=== PATIENT | male | born 1945 | race Caucasian/White ===

== ENCOUNTER → 2019-12-11 08:19 | Outpatient (BNVA) | payer MEDICARE, SELFPAY | PROVIDERS: Family Provider Nurse Practitioner; PCP Nurse Practitioner; Visit Provider Nurse Practitioner Family | DX: E03.9 Hypothyroidism, unspecified (principal); I10 Essential (primary) hypertension; E78.2 Mixed hyperlipidemia; F02.80 Dementia in other diseases classified elsewhere, unspecified severity, without behavioral disturbance, psychotic disturbance, mood disturbance, and anxiety; G30.9 Alzheimer's disease, unspecified | CPT/HCPCS: 80053; 80061; 81001; 84443; 85025 ==

== ENCOUNTER → 2020-04-20 09:09 | Outpatient (BNVA) | payer MEDICARE, SELFPAY | PROVIDERS: Family Provider Nurse Practitioner; PCP Nurse Practitioner Family; Visit Provider Nurse Practitioner Family | DX: I10 Essential (primary) hypertension (principal); E03.9 Hypothyroidism, unspecified; Z00.00 Encounter for general adult medical examination without abnormal findings | CPT/HCPCS: 80053; 84443; 85025 ==

== ENCOUNTER → 2021-04-18 09:59 | Outpatient (BNVA) | payer MEDICARE, SELFPAY | PROVIDERS: Family Provider Nurse Practitioner; PCP Nurse Practitioner Family; Visit Provider Nurse Practitioner Family | DX: E55.9 Vitamin D deficiency, unspecified (principal); I10 Essential (primary) hypertension; E78.2 Mixed hyperlipidemia; E03.9 Hypothyroidism, unspecified; Z79.899 Other long term (current) drug therapy; Z12.5 Encounter for screening for malignant neoplasm of prostate | CPT/HCPCS: 80053; 80061; 81003; 82306; 83036; 84443; 85007; 85025; G0103 ==

== ENCOUNTER 2021-08-25 10:33 | Inpatient (IN) | payer MEDICARE, SELFPAY ==
[2021-08-25] VITALS (15 sets, daily range): BP systolic 103–143; BP diastolic 68–119; PULSE 91–152; RESP 16–23; TEMP 37.1; O2SAT 89–96; BMI 25.0
--- NOTE | 2021-08-25 10:53 | XR_ITS ---
WS: [id number] PORTABLE CHEST HISTORY: dyspnea/cough COMPARISON: None available. Mild pulmonary hyperinflation. Markings throughout the periphery of the RIGHT lung. Increased interst itial thickening begins towards the apex and extends to the costophrenic angle. The LEFT lung is mansi r. No pleural effusion or pneumothorax. Cardiac size: Normal. Mediastinum/Aorta: Mild atherosclerosis aorta. No osseous abnormality seen. XR/XR chest 1V portable [id number] IMPRESSION: 1. Diffuse peripheral increased interstitial thickening and reticulation throu ghout the RIGHT lung. Probably due to pneumonitis. 2. Mild atherosclerosis aorta. 3. Chronic emphysema.
--- NOTE | 2021-08-25 11:01 | W.ED.ARRPALP ---
HPI - Arrhythmia/Palpitations General: Chief Complaint: ER Hold Stated Complaint: AFIB Acting up Time Seen by Provider: 08/25/21 10:49 History of Present Illness: 75-year-old male presents to the emergency room with complaint of rapid heart rate for the last 4 to 5 days. No chest pain he does have increasing shortness of breath with activity. He has a known history of atrial fibrillation he is not on any anticoagulant he is on metoprolol has been taking all of his medications recently MD complaint: rapid heart beat, heart racing , skipped beats , palpitations and irregular heart beat Onset (ago): day(s) Duration: constant Severity: moderate Arrhythmia history: atrial fibrillation Associated symptoms: Deny anxiety, cough, diaphoresis, muscle cramps, nausea, paresthesias, pre-syncope, sense of impending doom, short of breath, syncope or vomiting Review of Systems Const: Denies: diaphoresis ENMT: Denies: throat pain, ear or mastoid pain, nasal discharge or nasal congestion Card: Denies: syncope or pre-syncope Resp: Denies: dyspnea, productive cough or non-productive cough GI: Denies: nausea or vomiting : Denies: flank pain, dysuria, urinary frequency or urinary urgency Musc: Denies: muscle cramps Skin/Breast: Denies: rash or pruritus Psych: Denies: anxiety PFSH ED PFSH: Medical History Afib Alzheimer's dementia Arthritis Colon cancer screening Essential hypertension Hypothyroid Influenza vaccine needed Medication management Mixed hyperlipidemia Prostate cancer screening Tinea corporis Vitamin D deficiency Surgical History H/O basal cell carcinoma excision Social History Second hand smoke exposure: No Alcohol intake: never Desire information about alcohol rehabilitation?: No Counseling given: No Desire information about substance/drug rehabilitation?: No Counseling given: No Caregiver/support person: Yes Lives independently: Yes Household members: spouse Housing: House Marital status: Physical Exam Const: COMMON NORMALS: no acute distress GENERAL APPEARANCE: cooperative and comfortable ORIENTATION/CONSCIOUSNESS: Yes awake, Yes oriented to person, Yes oriented to place and Yes oriented to time Neck/C-Spine: COMMON NORMALS: no JVD Resp: COMMON NORMALS: normal respiratory effort, No retractions, No use of accessory muscles and clear to auscultation bilaterally AUSCULTATION: clear to auscultation bilaterally Cardio: COMMON NORMALS: no JVD RATE: tachycardic RHYTHM: abnormal rhythm irregularly irregular GI: COMMON NORMALS: Soft to palpation and No hepatosplenomegaly present AUSCULTATION: Yes normoactive bowel sounds PALPATION: Yes Soft to palpation, No Tenderness to palpation present (GI), No Guarding due to palpation present (GI) and Yes No hepatosplenomegaly present Extremity: COMMON NORMALS: normal to inspection, capillary refill normal, no clubbing, cyanosis or edema, no calf tenderness and no pedal edema Neuro: SENSORIUM/ORIENTATION: Yes oriented to person, Yes oriented to place and Yes oriented to time Skin: COMMON NORMALS: no rashes or lesions noted GENERAL SKIN EXAM: no rashes or lesions noted Course Vital Signs: Vital signs: Vital Signs Temperature 97.3 F L 08/30/21 03:22 Pulse Rate 88 08/30/21 06:00 Respiratory Rate 18 08/30/21 03:30 Blood Pressure 149/88 08/30/21 03:22 Pulse Oximetry 94 08/30/21 03:30 MDM - Arrhythmia/Palpitations Medical Decision Making Patient presents with COVID pneumonitis, acute kidney injury A. fib with rapid ventricular response and dementia. Patient was initiated on Cardizem drip for rate control. Patient has improved rate. Were not able to CT his chest at this point due to his acute kidney injury however he is not profoundly hypoxic at this point. I am suspicious that he will significantly worsen to the course of this given his age and his other comorbidities. Discussed with hospitalist orders written Medical Records I reviewed the patient's medical records. Lab Data I reviewed the patient's lab results. : 08/30/21 02:25 08/30/21 02:25 Radiology Impressions Chest/Abdomen/Pelvis CT 08/26/21 17:23 IMPRESSION: 1. Hazy bilateral pulmonary opacities which are consistent with COVID-19. 2. Evaluation of pulmonary arteries is somewhat limited secondary to respiratory motion. 3. No pulmonary embolism. IMPRESSION: 1. The examination is limited by patient motion. 2. Diverticulosis without diverticulitis. COMMENTS: Consistent with the [employer] [employer]'s Incidental Findings Committee white paper (J Am Kelli Radiol 2018): Any incidental renal lesion less than 1 cm or classified as too small to characterize, or any incidental cystic renal lesion characterized as simple-appearing, is likely benign. No follow-up imaging is recommended for these lesions per consensus recommendations based on imaging criteria. Head CT 08/26/21 17:23 IMPRESSION: 1. No acute infarct or hemorrhage. 2. No calvarial or skull base fracture. 3. Mild parenchymal atrophy and chronic small vessel disease. Chest X-Ray 08/28/21 09:28 IMPRESSION: 1. Diffuse airspace disease throughout the RIGHT lung. No interval change or improvement. Less opacification throughout the LEFT lung. 2. Pulmonary hypertension. Laboratory Results WBC 23.5 10^3/uL (4.0-10.0) H 08/25/21 11:33 RBC 4.44 10^6/uL (4.1-5.3) 08/25/21 11:33 Hgb 12.3 g/dL (11.7-16.6) 08/25/21 11:33 Hct 37.1 % (42.0-52.0) L 08/25/21 11:33 MCV 83.6 fl (80-94) 08/25/21 11:33 MCH 27.7 pg (28.0-34.0) L 08/25/21 11:33 MCHC 33.2 g/dL (30.0-36.0) 08/25/21 11:33 RDW 16.4 % (12.1-15.1) H 08/25/21 11:33 Plt Count 49 10^3/cmm (130-400) L 08/25/21 11:33 MPV Not Reportable 08/25/21 11:33 Lymph % (Auto) Not Reportable 08/25/21 11:33 [place] % (Auto) Not Reportable 08/25/21 11:33 Lymph # (Auto) Not Reportable 08/25/21 11:33 [place] # (Auto) Not Reportable 08/25/21 11:33 Total Counted 100 (0-100) 08/25/21 11:33 Atypical Lymphs % 2.0 % (0-5) 08/25/21 11:33 Absolute Neutrophils 18.6 10^3/cmm (1.4-6.5) H 08/25/21 11:33 Segmented Neutrophils 60 % 08/25/21 11:33 Abs Segm Neuts (Man) 14.1 10/cmm (1.6-7.1) H 08/25/21 11:33 Band Neutrophils 19.0 % 08/25/21 11: Abs Band Neuts (Man) 4.5 10^3/cmm (0.0-1.2) H 08/25/21 11:33 Absolute Lymphocytes 0.9 10^3/cmm (1.2-3.4) L 08/25/21 11:33 Lymphocytes (Manual) 2 % 08/25/21 11: Monocytes (Manual) 11.0 % 08/25/21 11: Absolute Monocytes 2.6 10^3/cmm (0.1-0.6) H 08/25/21 11: Eosinophils (Manual) 0 % 08/25/21 11: Absolute Eosinophils 0.0 10^3/cmm (0.0-0.7) 08/25/21 11:33 Basophils (Manual) 0.0 % 08/25/21 11: Absolute Basophils 0.0 10^3/cmm (0.0-0.2) 08/25/21 11:33 Metamyelocytes 3.0 % 08/25/21 11: Myelocytes 3.0 % 08/25/21 11:33 Platelet Estimate Decreased (Normal) 08/25/21 11:33 ESR 37 mm/hr (0-10) H 08/25/21 11:33 Sodium 133 mmol/L (136-145) L 08/25/21 11:33 Potassium 3.8 mmol/L (3.5-5.1) 08/25/21 11:33 Chloride 101 mmol/L (98-107) 08/25/21 11:33 Carbon Dioxide 20 mmol/L (22-29) L 08/25/21 11:33 Anion Gap 15.8 (5-19) 08/25/21 11:33 BUN 33 mg/dL (8-23) H 08/25/21 11:33 Creatinine 1.3 mg/dL (0.7-1.2) H 08/25/21 11:33 GFR Calculation Not Reportable 08/25/21 11:33 Glucose 137 mg/dL (65-115) H 08/25/21 11:33 Calculated Osmolality 285 mOsm/kg (285-295) 08/25/21 11:33 Calcium 9.3 mg/dL (8.5-10.5) 08/25/21 11:33 Iron 24 ug/dL (59-158) L 08/25/21 11:33 TIBC 132 mcg/dl 08/25/21 11:33 % Saturation 18.1 % (20-50) L 08/25/21 11:33 Unsat Iron Binding 108 ug/dL (112-347) L 08/25/21 11:33 Ferritin 992 ng/mL (30-400) H 08/25/21 11:33 Total Bilirubin 0.6 mg/dL (0.15-1.2) 08/25/21 11:33 AST 24 U/L (0-40) 08/25/21 11:33 ALT 13 U/L (0-41) 08/25/21 11:33 Alkaline Phosphatase 43 IU/L (40-130) 08/25/21 11:33 Lactate Dehydrogenase 318 U/L (135-225) H 08/25/21 11:33 Creatine Kinase 57 U/L (39-308) 08/25/21 11:33 Troponin T Baseline 21 ng/L (0-15) H 08/25/21 11:33 Troponin T 120 Minute 21.35 ng/L (0-15) H 08/25/21 13:45 Delta Troponin T 0.35 ABS# (0-10) 08/25/21 13:45 NT-Pro-B Natriuret Pep 2423 pg/mL (0-450) H 08/25/21 11:33 Total Protein 6.1 g/dL (6.6-8.7) L 08/25/21 11:33 Albumin 3.6 g/dL (3.5-5.2) 08/25/21 11:33 Globulin 2.5 g/dL (1.3-4.6) 08/25/21 11:33 Procalcitonin 0.19 ng/mL (0-0.5) 08/25/21 11:33 TSH 3.16 uIU/mL (0.27-4.20) 08/25/21 11:33 Urine Color Yellow (Yellow) 08/25/21 11:51 Urine Appearance Clear (CLEAR) 08/25/21 11:51 Urine pH 5 (5-7) 08/25/21 11:51 Ur Specific [place] 1.015 (1.005-1.030) 08/25/21 11:51 Urine Protein Trace (Negative) 08/25/21 11:51 Urine Glucose (UA) Norm (Normal) 08/25/21 11:51 Urine Ketones 1+ (Negative) H 08/25/21 11:51 Urine Blood 2+ (Negative) H 08/25/21 11:51 Urine Nitrate Negative (Negative) 08/25/21 11:51 Urine Bilirubin Neg (Negative) 08/25/21 11:51 Urine Urobilinogen Neg mg/dL (Negative) 08/25/21 11:51 Ur Leukocyte Esterase Negative (Negative) 08/25/21 11:51 Urine RBC Rare /hpf (0-2) 08/25/21 11:51 Urine WBC Rare /hpf (0-5) 08/25/21 11:51 Ur Squamous Epith Cells Rare /hpf (0-5) 08/25/21 11:51 Amorphous Sediment 1+ /hpf 08/25/21 11:51 Urine Bacteria Trace /hpf (NONE) 08/25/21 11:51 SARS-CoV-2 Ag (Rapid) Positive (Negative) H 08/25/21 14:27 Critical Care Time Critical Care Time: Critical Care Time: Yes Total Critical Care Time: 45 Attestation: The high probability of a clinically significant, sudden or life threatening deterioration of the patient's cardiovascular/respiratory system(s) required my full and direct attention, intervention and personal management. The critical care time is as shown. This time is in addition to time spent performing any reported procedures but includes the following: [x] Data and vital sign review and interpretation [x] Patient assessment, examination and intervention [x] Documentation [x] Medication orders and management Discharge Plan Discharge Patient Disposition: Admitted As Inpatient Admit Provider: Jhon Mcleod Clinical Impression: COVID-19, Atrial fibrillation, Pneumonia, Hypothyroid, Acute kidney injury (nontraumatic), Thrombocytopenia Condition: Stable Coding Level of Care Code ED Director Medical Writing for [facility]
[2021-08-25 11:48] LABS: Hematocrit 37.1 % (42.0-52.0); Hemoglobin 12.3 g/dL (11.7-16.6); Mean Corpuscular HGB Conc 33.2 g/dL (30.0-36.0); Mean Corpuscular Hemoglobin 27.7 pg (28.0-34.0); Mean Corpuscular Volume 83.6 fl (80-94); Platelet Count 49 10^3/cmm (130-400); Red Blood Count 4.44 10^6/uL (4.1-5.3); Red Cell Distribution Width 16.4 % (12.1-15.1); White Blood Count 23.5 10^3/uL (4.0-10.0)
[2021-08-25 12:06] LABS: Troponin(5th) Baseline 21 ng/L (0-15)
[2021-08-25 12:14] LABS: Alanine Aminotransferase 13 U/L (0-41); Albumin Level 3.6 g/dL (3.5-5.2); Alkaline Phosphatase 43 IU/L (40-130); Anion Gap 15.8 (5-19); Aspartate Amino Transferase 24 U/L (0-40); Blood Urea Nitrogen 33 mg/dL (8-23); Calcium 9.3 mg/dL (8.5-10.5); Carbon Dioxide 20 mmol/L (22-29); Chloride 101 mmol/L (98-107); Globulin 2.5 g/dL (1.3-4.6); Glucose 137 mg/dL (65-115); Osmolality Calculated 285 mOsm/kg (285-295); Potassium 3.8 mmol/L (3.5-5.1); Sodium 133 mmol/L (136-145); Thyroid Stimulating Hormone 3.16 uIU/mL (0.27-4.20); Total Bilirubin 0.6 mg/dL (0.15-1.2); Total Protein 6.1 g/dL (6.6-8.7)
[2021-08-25 12:16] LABS: Slide Review Slide Review Perform
[2021-08-25 12:18] LABS: Absolute Segmented Neutrophil 14.1 10/cmm (1.6-7.1); Band Neutrophils Absolute 4.5 10^3/cmm (0.0-1.2); Eosinophils 0 %; Lymphocytes 2 %; Monocytes Absolute 2.6 10^3/cmm (0.1-0.6); Segmented Neutrophils 60 %; Total Cells Counted 100 (0-100)
[2021-08-25 12:19] LABS: Absolute Neutrophil 18.6 10^3/cmm (1.4-6.5); Lymphocytes Absolute 0.9 10^3/cmm (1.2-3.4); Platelet Estimate Decreased (Normal)
[2021-08-25 12:51] LABS: Add Urine Microscopic? YES; Bilirubin Urine Neg (Negative); Blood Urine 2+ (Negative); Glucose Urine UA Norm (Normal); Ketones Urine 1+ (Negative); Leukocyte Esterase Urine Negative (Negative); Nitrate Urine Negative (Negative); Protein Urine Trace (Negative); Specific Gravity, Urine 1.015 (1.005-1.030); Urine Appearance Clear (CLEAR); Urine Color Yellow (Yellow); Urobilinogen Urine Neg (Negative); pH Urine 5 (5-7)
[2021-08-25 12:52] LABS: Add Urine Culture? No; Amorphous Sediment Urine 1+ /hpf; Bacteria Urine TRACE /hpf; RBC Urine RARE /hpf (0-2); Squamous Epithelial Cell Urine RARE /hpf (0-5); WBC Urine RARE /hpf (0-5)
[2021-08-25] MEDS: cefTRIAXone 1,000 MG in sodium chloride 0.9% (plus) 50 ML 100 MG IV (13:35)
[2021-08-25 14:49] LABS: Troponin 5 2HR 21.35 ng/L (0-15); Troponin 5 2HR Delta 0.35 ABS# (0-10)
[2021-08-25] MEDS: azithromycin 500 MG in sodium chloride 0.9% 250 ML 250 MG IV (15:49)
[2021-08-25 16:11] LABS: SARS Covid-2 Antigen Positive (Negative)
--- NOTE | 2021-08-25 16:47 | P.HP_ITS ---
Providers/Chief Complaint Primary Care Provider: MARCI Frias Chief Complaint: AFIB Acting up History of Present Illness Jalen Cannon is a 75 year old male with past medical, hypothyroidism, hypertension, Alzheimer's dementia who presents to the ER today with his because of difficulty in breathing which has been getting worse over last 5 days along with cough and expectoration. As per the his A. fib have been acting up. He has been having difficulty in breathing and his heart rate has been high on the home blood pressure monitor for last 5 days. Difficulty in breathing is getting exacerbated by minimal ambulation. Patient is vaccinated for COVID with moderna with last shot in fall has not taken the booster yet. Blood work in the ER showed a white count 23,000, hemoglobin of 12, platelet count of 49,000, sodium of 133, potassium of 3.8, creatinine of 1.3, AST/ALT are 24/13, TSH of 3.1, UA negative for nitrite, leuk esterase, COVID-19 rapid antigen positive Review of Systems General: Reports: ROS unobtainable due to medical condition Medications/Allergies Home Medications Medication Instructions Recorded Confirmed Last Taken Type Fish Oil 1 cap PO DAILY@08/25/21 08/25/21 Unknown History ascorbic acid (vitamin C) 500 mg 500 mg PO DAILY@08/25/21 08/25/21 Unknown History tablet (Vitamin C) calcium carbonate 600 mg (1,500 1 tab PO DAILY@08/25/21 08/25/21 Unknown History mg)-vitamin D3 200 unit tablet cholecalciferol (vitamin D3) 25 25 mcg PO DAILY@08/25/21 08/25/21 Unknown History mcg (1,000 unit) tablet (Vitamin D3) garlic 1 tab PO DAILY@08/25/21 08/25/21 Unknown History hydrochlorothiazide 12.5 mg capsule 12.5 mg PO QAM 08/25/21 08/25/21 08/25/21 08:30 History levothyroxine 50 mcg tablet 50 mcg PO QAM 08/25/21 08/25/21 08/25/21 History losartan 100 mg tablet 100 mg PO BEDTIME 08/25/21 08/25/21 08/24/21 History lovastatin 40 mg tablet 40 mg PO BEDTIME 08/25/21 08/25/21 08/24/21 History magnesium oxide 400 mg PO DAILY@12 08/25/21 08/25/21 Unknown History memantine 28 mg capsule 28 mg PO QAM 08/25/21 08/25/21 08/25/21 08:30 History sprinkle,extended release 24hr metoprolol succinate 25 mg 25 mg PO QAM 08/25/21 08/25/21 08/25/21 08:30 History tablet,extended release 24 hr multivitamin 1 tab PO DAILY 08/25/21 08/25/21 Unknown History Allergies Allergy/AdvReac Type Severity Reaction Status Date / Time donepezil [From Aricept] Allergy weight loss Verified 08/25/21 11:33 PFSH Acute PFSH: Medical History Afib Alzheimer's dementia Arthritis Colon cancer screening Essential hypertension Hypothyroid Influenza vaccine needed Medication management Mixed hyperlipidemia Prostate cancer screening Tinea corporis Vitamin D deficiency Surgical History H/O basal cell carcinoma excision Social History (Updated 08/25/21 @ 17:23 by Jhon Mcleod MD) Second hand smoke exposure: No Alcohol intake: never Desire information about alcohol rehabilitation?: No Counseling given: No Desire information about substance/drug rehabilitation?: No Counseling given: No Caregiver/support person: Yes Lives independently: Yes Household members: spouse Housing: House Marital status: Vitals/I&O/Wt Last Vital Signs Temp 98.7 F 08/25/21 10:51 Pulse 105 H 08/25/21 16:07 Resp 23 H 08/25/21 16:07 BP 115/71 08/25/21 16:07 Pulse Ox 92 08/25/21 16:07 08/25/21 08/25/21 08/25/21 06:59 14:59 22:59 Intake Total 70.067 / 70.067 23.542 / 93.609 Balance 70.067 / 70.067 23.542 / 93.609 Weight last 48 hrs Weight 83.915 kg Physical Exam Narrative: General: No acute distress, AO x 2, forgetful, knows he is in the hospital, knows his name and his 's name but not able to tell me why he is in the hospital HEENT: PERRLA, pupils bilaterally equal and reactive Chest: Normal vesicular breath sounds, no added sounds, equal good air entry bilaterally CVS: S1-S2 irregularly irregular, soft pansystolic murmur at apex, no tachycardia, no gallops, no rubs Abdomen: Soft, nontender, no organomegaly, bowel sounds present Neuro: No focal deficits, no facial deformity, Data : 08/25/21 11:33 08/25/21 11:33 Micro: Microbiology 08/25/21 13:45 Blood Culture - Preliminary Blood SPECIMEN COLLECTED 08/25/21 13:51 Blood Culture - Preliminary Blood SPECIMEN COLLECTED A&P Assessment and plan (1) Afib: Status: Acute (2) Hypoxia: Status: Acute (3) COVID-19: Status: Acute (4) Pneumonia: Status: Acute (5) Acute kidney injury (nontraumatic): Status: Acute (6) Essential hypertension: Status: Acute (7) Hypothyroid: Status: Acute Qualifiers: Hypothyroidism type: acquired Qualified Code(s): E03.9 - Hypothyroidism, unspecified (8) Alzheimer's dementia: Status: Acute (9) Thrombocytopenia: Status: Acute Plan Atrial fibrillation: Rapid ventricular response: Currently on Cardizem drip. Start on oral Cardizem 30 mg every 6 hourly. Stop Cardizem drip accordingly. Continue with home dose of metoprolol. Not on anticoagulation at home most likely secondary to recurrent falls. Currently thrombocytopenic so we will hold off on anticoagulation. Check echocardiogram. Hypoxia: Most likely is a combination of COVID-19 along with possible superimposed bacterial infection and CHF. COVID-19: Mild to moderate disease. Oxygen supplementation keeping saturation over 88%. Dexamethasone 6 mg daily. Remdesivir to finish a 5-day course. Vitamin C, zinc. DuoNeb every 6 hour, budesonide twice daily Pulmonary toilet with incentive spirometry flutter valve. We will monitor inflammatory markers including CRP, D-dimer every 48 hours. If getting elevated will dose Actemra but will have to rule out bacterial pneumonia before. Patient was made aware of the same and he has given verbal consent. Check D-dimer. Will do CT chest without contrast given mild NANCY will hold off on CTA for now. Patient has severe thrombocytopenia so we will hold off on anticoagulation for now. Check sputum culture, procalcitonin, urine Legionella, bacterial antigen, blood culture. For now start patient on treatment for community-acquired pneumonia with IV ceftriaxone and oral azithromycin. Check MRSA swab. If MRSA positive we will add vancomycin. Given hypoxia will try to keep patient as negative as possible. Patient clinically dehydrated for now. For now continue with gentle hydration with normal saline at 50 cc/h. Strict input output charting, daily weights. NANCY: Most likely secondary to dehydration along with home dose of ARB. Urinalysis, urine lites. Medical reconciliation done for nephrotoxic drugs. Hold off on losartan for now. Thrombocytopenia: Currently 49. Hemoglobin seems stable. Baseline platelet count around 150. Most likely secondary to viral infection. Continue to monitor. Continue to monitor for bleeding. Fall precaution. Hypertension: Goal blood pressure less than 140/90 mmHg. For now hold off on antihypertensives. Continue with metoprolol. We will uptitrate medication accordingly blood pressures. Advanced dementia CODE STATUS: Discussed in detail with patient's /DPOA. She states she is feeling making medical decisions for the patient. They have discussed in the past. DNR/DNI. Cardiac diet. SCDs for DVT prophylaxis. Hold off on medical prophylaxis given throm bocytopenia. 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
--- NOTE | 2021-08-25 16:53 | ECG_ITS ---
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
[2021-08-25 17:38] LABS: Erythrocyte Sedimentation Rate 37 mm/hr (0-10)
[2021-08-25 17:49] LABS: NT Pro B Type Natriuretic Pept 2423 pg/mL (0-450); Procalcitonin 0.19 ng/mL (0-0.5)
[2021-08-25 18:00] LABS: Creatine Phosphokinase 57 U/L (39-308); Ferritin 992 ng/mL (30-400); Iron 24 ug/dL (59-158); Percent Saturation 18.1 % (20-50); Total Iron Binding Capacity 132 mcg/dl; Unsaturated Iron Binding 108 ug/dL (112-347)
[2021-08-25 18:13] LABS: Fibrinogen 504 mg/dL (174-498)
[2021-08-25 18:17] LABS: D Dimer 1.71 ug/mIFEU (0-0.59)
[2021-08-25 18:20] LABS: Lactate Dehydrogenase 318 U/L (135-225)
[2021-08-25] MEDS: famotidine 20 mg/2 mL INJ IVP (18:20)
[2021-08-25] MEDS: ferrous gluconate 324 mg Tablet PO (18:20)
[2021-08-25] MEDS: dilTIAZem 30 mg Tablet PO (18:20)
[2021-08-25] MEDS: remdesivir 200 MG in sodium chloride 0.9% (100 ml) 100 ML 100 MG IV (18:21)
[2021-08-25] MEDS: dexamethasone 4 mg/mL INJ 6 MG IVP (18:21)
[2021-08-25 18:35] LABS: Troponin 5 6HR 18.45 ng/L (0-15)
[2021-08-25 18:36] LABS: Troponin 5 6HR Delta -2.55 ng/L (0-12)
[2021-08-25 20:08] LABS: Lactic Sepsis W/Reflex 1.6 mmol/L (0.5-2.2)
[2021-08-25] MEDS: atorvastatin 40 mg Tablet 20 MG PO (21:23)
[2021-08-25] MEDS: benzonatate 100 mg Capsule PO (21:24)
[2021-08-25] MEDS: budesonide 0.5 mg/2 mL Neb INHALATION (21:54)
[2021-08-25] MEDS: ipratropium-albuterol 3 mL Neb INHALATION (21:54)
[2021-08-25] MEDS: sodium chloride 0.9% 1,000 ML 50 ML IV (22:50)
[2021-08-25 23:02] LABS: Influenza A by IFA Negative (Negative); Influenza B by IFA Negative (Negative)
[2021-08-26] VITALS (15 sets, daily range): BP systolic 95–145; BP diastolic 46–80; PULSE 59–108; RESP 14–20; TEMP 36.7; O2SAT 91–99
[2021-08-26] MEDS: ipratropium-albuterol 3 mL Neb INHALATION ×3 (01:29→22:34)
[2021-08-26] MEDS: dilTIAZem 30 mg Tablet PO ×3 (02:08→10:31)
[2021-08-26] MEDS: famotidine 20 mg/2 mL INJ IVP ×2 (05:34→19:51)
[2021-08-26 06:31] LABS: Basophils # 0.1 10^3/uL (0.0-0.1); Basophils % 0.2 %; Hematocrit 40.2 % (42.0-52.0); Hemoglobin 12.9 g/dL (11.7-16.6); Lymphocytes % 5.5 %; Mean Corpuscular HGB Conc 32.1 g/dL (30.0-36.0); Mean Corpuscular Hemoglobin 27.6 pg (28.0-34.0); Mean Corpuscular Volume 85.9 fl (80-94); Monocytes # 2.4 10^3/uL (0.2-0.9); Monocytes % 6.6 %; Neutrophils # 28.15 10^3/uL (1.8-7.7); Neutrophils % 76.2 %; Nucleated Red Blood Cells % 0 %; Platelet Count 75 10^3/cmm (130-400); Red Blood Count 4.68 10^6/uL (4.1-5.3); Red Cell Distribution Width 16.7 % (12.1-15.1)
[2021-08-26] MEDS: metoprolol succinate ER (24 HR) 25 mg Tablet PO (06:39)
[2021-08-26] MEDS: levothyroxine 50 mcg Tablet PO (06:39)
[2021-08-26 06:40] LABS: D Dimer 1.96 ug/mIFEU (0-0.59)
[2021-08-26 06:51] LABS: C Reactive Protein 209.8 mg/L (0.0-4.9); Chol HDL Ratio 3.92 mg/dL (1.0-5.00); Cholesterol 98 mg/dL (0-200); HDL Cholesterol 25 mg/dL (60-100); LDL Cholesterol Calculated 60 mg/dL (50-129); Triglycerides 66 mg/dL (0-150); VLDL Cholestrol Calculation 13 mg/dL (0-30)
[2021-08-26 06:52] LABS: Alanine Aminotransferase 15 U/L (0-41); Albumin Level 3.7 g/dL (3.5-5.2); Alkaline Phosphatase 58 IU/L (40-130); Anion Gap 18.9 (5-19); Aspartate Amino Transferase 25 U/L (0-40); Blood Urea Nitrogen 25 mg/dL (8-23); Calcium 8.8 mg/dL (8.5-10.5); Carbon Dioxide 21 mmol/L (22-29); Chloride 100 mmol/L (98-107); Globulin 3.4 g/dL (1.3-4.6); Glucose 187 mg/dL (65-115); Osmolality Calculated 291 mOsm/kg (285-295); Potassium 3.9 mmol/L (3.5-5.1); Sodium 136 mmol/L (136-145); Total Bilirubin 0.5 mg/dL (0.15-1.2); Total Protein 7.1 g/dL (6.6-8.7)
[2021-08-26 07:21] LABS: Estmated Average Glucose 126
[2021-08-26 07:44] LABS: Slide Review Slide Review Perform; White Blood Count 36.9 10^3/uL (4.0-10.0)
[2021-08-26] MEDS: zinc gluconate 50 mg Tablet PO (09:22)
[2021-08-26] MEDS: ferrous gluconate 324 mg Tablet PO (09:22)
[2021-08-26] MEDS: benzonatate 100 mg Capsule PO ×2 (09:22→19:46)
[2021-08-26] MEDS: azithromycin 250 mg Tablet 500 MG PO (09:22)
[2021-08-26] MEDS: vancomycin 1,250 MG/250 ML PIGGYBACK 250 MG IV (10:31)
[2021-08-26] MEDS: ascorbic acid 500 mg Tablet PO (12:24)
[2021-08-26] MEDS: LORazepam 2 mg/mL INJ 1 mL IVP (12:45)
[2021-08-26] MEDS: cefTRIAXone 1,000 MG in sodium chloride 0.9% (plus) 50 ML 100 MG IV (12:47)
[2021-08-26] MEDS: sodium chloride 0.9% 1,000 ML 50 ML IV (15:00)
[2021-08-26] MEDS: dexmedeTOMIDine 0.9 % NaCL 400 MCG/100 ML PREMIX IV (16:29)
--- NOTE | 2021-08-26 16:41 | USCV_ITS ---
Davis Glasscock Age: 75 Gender: M : 1945 Exam Date: 08/26/2021 06:21 Ordering Phys: Jhon Mcleod MD Technologist: Exam Location: [facility] – [place], [place] Indication: COVID BP: 135 / 85 HR: 95 Rhythm: Sinus Technical Quality: Technically difficult study MEASUREMENTS (Male / Female) Normal Values 2D ECHO LV Diastolic Diameter PLAX 3.6 cm 4.2 - 5.9 / 3.9 - 5.3 cm LV Systolic Diameter PLAX 2.9 cm IVS Diastolic Thickness 1.1 cm 0.6 - 1.0 / 0.6 - 0.9 cm IVS Systolic Thickness 1.7 cm LVPW Diastolic Thickness 1.2 cm 0.6 - 1.0 / 0.6 - 0.9 cm LVPW Systolic Thickness 1.2 cm LV Ejection Fraction 2D Teich 26.1 % DOPPLER AV Peak Velocity 137.0 cm/s LVOT Peak Velocity 100.0 cm/s MV Area PHT 5.0 cm squared Mitral E to A Ratio 2.4 MV E' Velocity 62.0 cm/s TR Peak Velocity 145.0 cm/s TR Peak Gradient 8.4 mmHg Right Atrial Pressure 3.0 mmHg Pulmonary Artery Systolic Pressu 11.4 mmHg FINDINGS Left Ventricle Normal LV systolic size. LV systolic function is normal. No regional wall motion abnormalities are seen. Right Ventricle Grossly normal in size and function Right Atrium Well-visualized Left Atrium Not well-visualized Mitral Valve Grossly normal. Aortic Valve Not well-visualized Tricuspid Valve Not well-visualized. Insufficient TR jet to calculate RVSP Pulmonic Valve Not visualized Pericardium Grossly normal Aorta Not well visualized CONCLUSIONS Technically very limited quality echocardiogram because of poor ultrasonic windows. LV systolic function is normal Valvular structures are not well-visualized. No comparison studies are available Lincoln Riley MD (Electronically Signed) Final Date: 26 August 2021 16:42 S
--- NOTE | 2021-08-26 16:45 | XRR_ITS ---
PROCEDURE INFORMATION: Exam: XR Chest Exam date and time: 08/26/2021 4:45 PM Age: 75 years old Clinical indication: Other: Covid TECHNIQUE: Imaging protocol: XR of the chest. Views: 1 view. COMPARISON: CR XR chest 1V portable [id number] 08/25/2021 10:58 AM FINDINGS: Lungs: Increasing asymmetric airspace opacities are noted in the right perihilar and peripheral right lung compatible with progressing pneumonic infiltrates. Also identified are increasing smaller airspace opacities in the left lower lobe and left upper lobe. Pleural spaces: Unremarkable. No pleural effusion. No pneumothorax. Heart/Mediastinum: The heart is enlarged. Bones/joints: There are moderate degenerative changes in the spine. XR/XR chest 1V portable [id number] IMPRESSION: Marked interval progression of bilateral airspace opacity/pneumonic infiltrates right greater than left.
--- NOTE | 2021-08-26 17:23 | CTR_ITS ---
PROCEDURE INFORMATION: Exam: CT Head Without Contrast Exam date and time: 08/26/2021 5:23 PM Age: 75 years old Clinical indication: Altered mental status/memory loss; Confusion or disorientation; Patient HX: AMS / c ombative TECHNIQUE: Imaging protocol: Computed tomography of the head without contrast. Radiation optimization: All CT scans at this facility use at least one of these dose optimization techniques: automated exposure control; mA and/or kV adjustment per patient size (includes targeted exams where dose is matched to clinical indication); or iterative reconstruction. COMPARISON: No relevant prior studies available. RADIATION DOSE METRICS: Total DLP (mGy-cm): 805.91 FINDINGS: Brain: There is mild parenchymal atrophy and chronic small vessel disease. No acute infarct or hemorrhage. Cerebral ventricles: No ventriculomegaly. Paranasal sinuses: ethmoid sinus mucosal thickening. Mastoid air cells: Visualized mastoid air cells are clear. Bones/joints: No calvarial or skull base fracture. Soft tissues: Unremarkable. CT/CT head wo con* [id number] IMPRESSION: 1. No acute infarct or hemorrhage. 2. No calvarial or skull base fracture. 3. Mild parenchymal atrophy and chronic small vessel disease.
--- NOTE | 2021-08-26 17:23 | CTR_ITS ---
PROCEDURE INFORMATION: Exam: CTA Chest With Contrast Exam date and time: 08/26/2021 5:23 PM Age: 75 years old Clinical indication: Shortness of breath; Patient HX: Covid+ w worsening SOB and fever TECHNIQUE: Imaging protocol: Computed tomographic angiography of the chest with contrast. 3D rendering (Not supervised by radiologist): MIP and/or 3D reconstructed images were created by the technologist. Radiation optimization: All CT scans at this facility use at least one of these dose optimization techniques: automated exposure control; mA and/or kV adjustment per patient size (includes targeted exams where dose is matched to clinical indication); or iterative reconstruction. Contrast material: OMNI 350; Contrast volume: 95 ml; Contrast route: INTRAVENOUS (IV); COMPARISON: CR (CHEST, ) 08/26/2021 5:07 PM RADIATION DOSE METRICS: Total DLP (mGy-cm): 1996.6 FINDINGS: Pulmonary arteries: Evaluation of pulmonary arteries is somewhat limited secondary to respiratory motion. No pulmonary embolism. Aorta: Unremarkable. No aortic aneurysm. No aortic dissection. Other arteries: There is moderate atherosclerotic disease. Lungs: Hazy bilateral pulmonary opacities which are consistent with COVID-19. Pleural spaces: Unremarkable. No pneumothorax. No pleural effusion. Heart: Unremarkable. No cardiomegaly. No pericardial effusion. Lymph nodes: Unremarkable. No enlarged lymph nodes. Bones/joints: Unremarkable. No acute fracture. Soft tissues: Unremarkable. PROCEDURE INFORMATION: Exam: CT Abdomen And Pelvis With Contrast Exam date and time: 08/26/2021 5:23 PM Age: 75 years old Clinical indication: Shortness of breath; Patient HX: Covid+ w worsening SOB and fever TECHNIQUE: Imaging protocol: Computed tomography of the abdomen and pelvis with contrast. Radiation optimization: All CT scans at this facility use at least one of these dose optimization techniques: automated exposure control; mA and/or kV adjustment per patient size (includes targeted exams where dose is matched to clinical indication); or iterative reconstruction. Contrast material: OMNI 350; Contrast volume: 95 ml; Contrast route: INTRAVENOUS (IV); COMPARISON: CR (CHEST, ) 08/26/2021 5:07 PM RADIATION DOSE METRICS: Total DLP (mGy-cm): 1997.6 FINDINGS: Lungs: The lung bases are clear. No effusion Liver: 1.2 cm hepatic cyst. Gallbladder and bile ducts: No wall thickening, pericholecystic fluid or stones. Pancreas: Normal. No ductal dilation. Spleen: Normal. No splenomegaly. Adrenal glands: Normal. No mass. Kidneys and ureters: There are multiple bilateral renal cysts, largest measures 5 cm. Stomach and bowel: Diverticulosis without diverticulitis. Appendix: No evidence of appendicitis. Intraperitoneal space: Unremarkable. No free air. No significant fluid collection. Vasculature: There is moderate atherosclerotic disease. Lymph nodes: Unremarkable. No enlarged lymph nodes. Urinary bladder: Unremarkable as visualized. Reproductive: Unremarkable as visualized. Bones/joints: Unremarkable. No acute fracture. Soft tissues: Unremarkable. Other findings: The examination is limited by patient motion. CT/CT angio chest w abd pel w con IMPRESSION: 1. Hazy bilateral pulmonary opacities which are consistent with COVID-19. 2. Evaluation of pulmonary arteries is somewhat limited secondary to respiratory motion. 3. No pulmonary embolism. IMPRESSION: 1. The examination is limited by patient motion. 2. Diverticulosis without diverticulitis. COMMENTS: Consistent with the [employer]'s Incidental Findings Committee white paper (J Am Kelli Radiol 2018): Any incidental renal lesion less than 1 cm or classified as too small to characterize, or any incidental cystic renal lesion characterized as simple-appearing, is likely benign. No follow-up imaging is recommended for these lesions per consensus recommendations based on imaging criteria.
--- NOTE | 2021-08-26 17:25 | PM.PN ---
Subjective Subjective: Overnight patient remained in the ER. Apparently patient received 2 mg of Ativan during the day and after which he became more confused. When moved to CSU patient was combative and soft restraints. Patient is saturating 88 to 90% on room air, confused. Otherwise has remained hemodynamically stable and afebrile. Heart rate better controlled. No more A. fib with RVR. Vitals/I&O/Wt Last Vital Signs Temp 98.7 F 08/25/21 10:51 Pulse 86 08/26/21 14:31 Resp 15 08/26/21 14:31 BP 105/62 08/26/21 14:31 Pulse Ox 93 08/26/21 14:31 08/26/21 08/26/21 08/26/21 06:59 14:59 22:59 Intake Total 808.333 / 808.333 Balance 808.333 / 808.333 Weight last 48 hrs Weight 83.915 kg Physical Exam Narrative: General: No acute distress, confused, combative HEENT: PERRLA, pupils bilaterally equal and reactive Chest: Normal vesicular breath sounds, no added sounds, equal good air entry bilaterally CVS: S1-S2 irregularly irregular, soft pansystolic murmur at apex, no tachycardia, no gallops, no rubs Abdomen: Soft, nontender, no organomegaly, bowel sounds present Neuro: No focal deficits, no facial deformity, Data : 08/26/21 06:16 08/26/21 06:16 Micro: Microbiology 08/25/21 13:51 Blood Culture - Preliminary Blood NEGATIVE TO DATE 08/25/21 13:45 Blood Culture - Preliminary Blood NEGATIVE TO DATE 08/25/21 22:39 MRSA Culture - Final Nose 08/25/21 11:51 Bacterial Antigens - Final Urine Kidney 08/25/21 15:56 Gram Stain - Final Sputum - Expectorated Sputum 08/25/21 11:51 Legionella Urinary Antigen - Final Unknown Source A&P Assessment and plan (1) AMS (altered mental status): Most likely secondary to worsening of dementia along with sundowning because of Ativan given in the ER. Cannot rule out Covid encephalopathy. Precedex drip. Haldol 1 mg IV as needed every [address] head. ABG. Status: Acute (2) Afib: Status: Acute (3) Hypoxia: Status: Acute (4) COVID-19: Status: Acute (5) Pneumonia: Status: Acute (6) Acute kidney injury (nontraumatic): Status: Acute (7) Essential hypertension: Status: Acute (8) Hypothyroid: Status: Acute Qualifiers: Hypothyroidism type: acquired Qualified Code(s): E03.9 - Hypothyroidism, unspecified (9) Alzheimer's dementia: Status: Acute (10) Thrombocytopenia: Status: Acute Plan Atrial fibrillation: Normal rate. Off Cardizem drip. Changed to metoprolol tartrate 25 mg twice daily. Metoprolol 5 mg IV as needed for heart rate of more than 120 hold for systolic blood pressure of less than 100 mmHg. Not on anticoagulation at home most likely secondary to recurrent falls. Currently thrombocytopenic so we will hold off on anticoagulation. Echocardiogram results appreciated. Technically difficult study. Possibly normal EF. Hypoxia: Most likely is a combination of COVID-19 along with possible superimposed bacterial infection and CHF. COVID-19: Mild to moderate disease. Oxygen supplementation keeping saturation over 88%. Dexamethasone 6 mg daily. Remdesivir to finish a 5-day course. Vitamin C, zinc. DuoNeb every 6 hour, budesonide twice daily Pulmonary toilet with incentive spirometry flutter valve. We will monitor inflammatory markers including CRP, D-dimer every 48 hours. High suspicion of bacterial pneumonia. We will hold off on Actemra. D-dimer elevated. Check CTA. For now hold off on anticoagulation given thrombocytopenia. Sputum culture pending. MRSA negative., Urine Legionella, bacterial antigen negative. Given elevated white count along with mild oxygen requirement for now switch patient to vancomycin and Zosyn. Continue with azithromycin for 3-day course. Will de-escalate antibiotics as per culture results. Given hypoxia will try to keep patient as negative as possible. Stop IV fluids. Strict input output charting, daily weights. NANCY: Most likely secondary to dehydration along with home dose of ARB. Resolved. Medical reconciliation done for nephrotoxic drugs. Hold off on losartan for now. Thrombocytopenia: Improved to 75. Hemoglobin seems stable. Baseline platelet count around 150. Most likely secondary to viral infection. Continue to monitor. Continue to monitor for bleeding. Fall precaution. Hypertension: Goal blood pressure less than 140/90 mmHg. For now hold off on antihypertensives. Continue with metoprolol. We will uptitrate medication accordingly blood pressures. Advanced dementia CODE STATUS: Discussed in detail with patient's /DPOA. She states she is feeling making medical decisions for the patient. They have discussed in the past. DNR/DNI. Cardiac diet. SCDs for DVT prophylaxis. Hold off on medical prophylaxis given thrombocytopenia. Famotidine for PUD prophylaxis Attestations Medical Necessity Statement*: Requires further hospitalization for management of altered mental status, hypoxia secondary COVID-19 pneumonia and high suspicion of superimposed bacterial pneumonia Time Spent in Patient Care: Greater than 35 minutes Coding Level of Care Code Acute Postal Service Window Clerk for Chg Fwd History Comprehensive Exam Comprehensive Medical Decision Making High Complexity Diagnoses Afib I48.91 Hypoxia R09.02 COVID-19 U07.1 Pneumonia J18.9 Acute kidney injury (nontraumatic) N17.9 Essential hypertension I10 Hypothyroid E03.9 Hypothyroidism type: acquired Alzheimer's dementia G30.9; F02.80 Thrombocytopenia D69.6 AMS (altered mental status) R41.82
[2021-08-26 18:29] LABS: C Reactive Protein 119.6 mg/L (0.0-4.9); NT Pro B Type Natriuretic Pept 1494 pg/mL (0-450)
[2021-08-26 18:56] LABS: D Dimer 1.55 ug/mIFEU (0-0.59)
[2021-08-26] MEDS: remdesivir 100 MG in sodium chloride 0.9% (100 ml) 100 ML IV (19:23)
[2021-08-26] MEDS: atorvastatin 40 mg Tablet 20 MG PO (19:45)
[2021-08-26] MEDS: haloperidol inj 5 mg/mL INJ 1 mL 1 MG IVP (19:53)
--- NOTE | 2021-08-26 20:12 | PC.NURSE ---
Is currently on a Precedex drip at 0.6. Patient will not leave lines or ivs in place. Patient refusing and fighting staff to have ward catheter placed. Patient is confused and combative at times. Informed Dr Porras and received telephone order for soft restraints at this time.
[2021-08-26] MEDS: metoprolol tartrate 50 mg Tablet 25 MG PO (20:35)
[2021-08-26] MEDS: dexamethasone 4 mg/mL INJ 6 MG IVP (20:39)
[2021-08-26] MEDS: piperacillin-tazobactam 3.375 GM in sodium chloride 0.9% (plus) 50 ML IV (20:42)
[2021-08-26] MEDS: iohexol 350 mg/mL 100 mL Btl IV (22:03)
[2021-08-26] MEDS: budesonide 0.5 mg/2 mL Neb INHALATION (22:33)
[2021-08-27] VITALS (22 sets, daily range): BP systolic 85–136; BP diastolic 51–84; PULSE 61–119; RESP 14–22; TEMP 36.5–37.1; O2SAT 89–97
[2021-08-27] MEDS: ipratropium-albuterol 3 mL Neb INHALATION ×7 (00:57→23:57)
[2021-08-27] MEDS: vancomycin 1,250 MG/250 ML PIGGYBACK 250 MG IV ×2 (03:16→22:24)
[2021-08-27 04:18] LABS: ABG PCO2 34.5 mmHg (35-45); ABG PH Result 7.41 (7.35-7.45); Arterial Blood Gas Hematocrit 34.6 % (42-52); Base Excess ABG -2.2 mmol/L (-2.0-2.0); Blood Gas Allen Test Pos; Blood Gas Sample Site Radial, left; Blood Gas Sample Type Arterial; Carboxyhemoglobin 0.8 %THgb (0.4-20.1); HCO3 ABG 21.9 mmol/L (22-26); Ionized Calcium Level - ABG 1.2 mmol/L (1.1-1.4); Methemoglobin 0.5 % (0.4-1.5); Oxygen Device NC; Oxygen Saturation ABG 95.2; PO2 ABG 69.6 mmHg (80.0-100.0); Total Hemoglobin 11.3 g/dL (14-18)
[2021-08-27] MEDS: piperacillin-tazobactam 3.375 GM in sodium chloride 0.9% (plus) 50 ML IV ×3 (04:43→16:56)
[2021-08-27] MEDS: famotidine 20 mg/2 mL INJ IVP ×2 (04:44→16:22)
[2021-08-27] MEDS: levothyroxine 50 mcg Tablet PO (05:44)
[2021-08-27 07:49] LABS: Basophils # 0.1 10^3/uL (0.0-0.1); Basophils % 0.2 %; Hemoglobin 11.5 g/dL (11.7-16.6); Lymphocytes # 0.8 10^3/uL (0.8-4.8); Lymphocytes % 3.1 %; Mean Corpuscular HGB Conc 31.1 g/dL (30.0-36.0); Mean Corpuscular Hemoglobin 27.4 pg (28.0-34.0); Mean Corpuscular Volume 88.1 fl (80-94); Monocytes # 1.3 10^3/uL (0.2-0.9); Monocytes % 5.4 %; Neutrophils # 19.22 10^3/uL (1.8-7.7); Nucleated Red Blood Cells % 0 %; Platelet Count 79 10^3/cmm (130-400); Red Cell Distribution Width 16.6 % (12.1-15.1); White Blood Count 23.8 10^3/uL (4.0-10.0)
[2021-08-27 07:54] LABS: Neutrophils % 91.3 %
[2021-08-27] MEDS: budesonide 0.5 mg/2 mL Neb INHALATION ×2 (08:06→19:31)
[2021-08-27 08:18] LABS: Alanine Aminotransferase 14 U/L (0-41); Alkaline Phosphatase 44 IU/L (40-130); Anion Gap 15.1 (5-19); Aspartate Amino Transferase 18 U/L (0-40); Blood Urea Nitrogen 29 mg/dL (8-23); Calcium 7.9 mg/dL (8.5-10.5); Carbon Dioxide 20 mmol/L (22-29); Chloride 107 mmol/L (98-107); Globulin 2.8 g/dL (1.3-4.6); Glucose 199 mg/dL (65-115); Osmolality Calculated 297 mOsm/kg (285-295); Potassium 4.1 mmol/L (3.5-5.1); Sodium 138 mmol/L (136-145); Total Bilirubin 0.4 mg/dL (0.15-1.2); Total Protein 5.8 g/dL (6.6-8.7)
[2021-08-27 08:23] LABS: Procalcitonin 0.16 ng/mL (0-0.5)
--- NOTE | 2021-08-27 09:00 | PC.NURSE ---
Soft restraints off. Pt is confused x4. not agitated, able to take his oral meds and cooperate in ryan-cares. no skin breakdowns noted. old bruises from previous iv punctures noted. bed alarm reset. we will monitor. per house sup no available sitter to sit as 1:1.
[2021-08-27] MEDS: azithromycin 250 mg Tablet 500 MG PO (09:01)
[2021-08-27] MEDS: ferrous gluconate 324 mg Tablet PO ×2 (09:02→16:49)
[2021-08-27] MEDS: zinc gluconate 50 mg Tablet PO (09:02)
[2021-08-27] MEDS: benzonatate 100 mg Capsule PO ×3 (09:02→20:56)
[2021-08-27] MEDS: metoprolol tartrate 50 mg Tablet 25 MG PO (09:13)
--- NOTE | 2021-08-27 09:42 | PC.NURSE ---
soft restraints applied back on. pt is getting out of bed, trying to remove his IV. bed alarm reset. no available sitter per house sup. no skin breakdown noted on wrists.
[2021-08-27] MEDS: memantine 5 mg tablet 10 MG PO ×2 (11:34→16:49)
[2021-08-27] MEDS: citalopram 20 mg Tablet PO (11:35)
[2021-08-27] MEDS: dilTIAZem 30 mg Tablet PO ×3 (13:58→20:55)
[2021-08-27] MEDS: ascorbic acid 500 mg Tablet PO (13:59)
--- NOTE | 2021-08-27 14:24 | PC.NURSE ---
Pt is awake but disoriented x2,calm and cooperative to staff. soft restraints off. precedex off. able to talk to through phone. minimal assist in feeding. bed alarm reset. will keep monitoring.
[2021-08-27] MEDS: dexamethasone 4 mg/mL INJ 6 MG IVP (16:21)
[2021-08-27] MEDS: acetaminophen 325 mg Tablet 650 MG PO (16:48)
[2021-08-27] MEDS: metoprolol tartrate 1 mg/1 mL SDV 5 mL 5 MG IVP (16:50)
--- NOTE | 2021-08-27 17:33 | PM.PN ---
Subjective Subjective: Overnight patient remained calm on Precedex. Today morning examination patient is a lot more awake and calm. He still confused but that is his baseline. Precedex was turned down from 0.5 and weaned off. Soft restraints were removed. He remained on 2 to 3 L of oxygen supplementation to maintain saturation over 92%. During my conversation with the patient turned down to 1 L and maintained at 89%. Heart rate occasionally going elevated controlled by oral Cardizem. Vitals/I&O/Wt Last Vital Signs Temp 98.0 F 08/27/21 16:56 Pulse 108 H 08/27/21 16:09 Resp 16 08/27/21 16:09 BP 135/69 08/27/21 16:00 Pulse Ox 90 08/27/21 17:01 08/27/21 08/27/21 08/27/21 06:59 14:59 22:59 Intake Total 445.882 / 1685.962 591.467 / 591.467 998 / 1589.467 Output Total 800 / 800 Balance 445.882 / 1685.962 591.467 / 591.467 198 / 789.467 Physical Exam Narrative: General: No acute distress, confused, more calm today. HEENT: PERRLA, pupils bilaterally equal and reactive Chest: Normal vesicular breath sounds, no added sounds, equal good air entry bilaterally CVS: S1-S2 irregularly irregular, soft pansystolic murmur at apex, no tachycardia, no gallops, no rubs Abdomen: Soft, nontender, no organomegaly, bowel sounds present Neuro: No focal deficits, no facial deformity, Urinary Catheter Management: Coude: Cath Placed During This Visit: no Reason for Continuing Indwelling Catheter: Other Coude Latex Free: Cath Placed During This Visit: yes Urinary Catheter Date of Insertion: 08/27/21 Urinary Catheter Time of Insertion: 11:30 Data : 08/27/21 07:40 08/27/21 07:40 Micro: Microbiology 08/25/21 15:56 Gram Stain - Final Sputum - Expectorated Sputum Sputum Culture - Preliminary 08/25/21 13:51 Blood Culture - Preliminary Blood NEGATIVE TO DATE 08/25/21 13:45 Blood Culture - Preliminary Blood NEGATIVE TO DATE 08/25/21 22:39 MRSA Culture - Final Nose A&P Assessment and plan (1) AMS (altered mental status): Most likely secondary to worsening of advanced dementia. Got worsened with Ativan given in the ER. Cannot rule out Covid encephalopathy. Precedex drip weaned off. ABG and CT head results appreciated. Haldol 1 mg IV as needed every [address] head. ABG. Status: Acute (2) Afib: Status: Acute (3) Hypoxia: Status: Acute (4) COVID-19: Status: Acute (5) Pneumonia: Status: Acute (6) Acute kidney injury (nontraumatic): Status: Acute (7) Essential hypertension: Status: Acute (8) Hypothyroid: Status: Acute Qualifiers: Hypothyroidism type: acquired Qualified Code(s): E03.9 - Hypothyroidism, unspecified (9) Alzheimer's dementia: Status: Acute (10) Thrombocytopenia: Status: Acute Plan Atrial fibrillation: Normal rate. Off Cardizem drip. Increase metoprolol to 50 mg twice daily. Metoprolol 5 mg IV as needed for heart rate of more than 120 hold for systolic blood pressure of less than 100 mmHg. Not on anticoagulation at home most likely secondary to recurrent falls. Currently thrombocytopenic so we will hold off on anticoagulation. Echocardiogram results appreciated. Technically difficult study. Possibly normal EF. Hypoxia: Most likely is a combination of COVID-19 along with possible superimposed bacterial infection and CHF. COVID-19: Mild to moderate disease. Oxygen supplementation keeping saturation over 88%. Dexamethasone 6 mg daily. Remdesivir to finish a 5-day course. Vitamin C, zinc. DuoNeb every 6 hour, budesonide twice daily Pulmonary toilet with incentive spirometry flutter valve. We will monitor inflammatory markers including CRP, D-dimer every 48 hours. High suspicion of bacterial pneumonia. We will hold off on Actemra. D-dimer elevated. CTA negative for pulmonary embolism. For now hold off on anticoagulation given thrombocytopenia. Sputum culture pending. MRSA negative, Urine Legionella, bacterial antigen negative. Given elevated white count along with mild oxygen requirement for continue with vancomycin and Zosyn. Continue azithromycin for 5-day course for atypical coverage. Given hypoxia will try to keep patient as negative as possible. IV Lasix 40 mg once. Strict input output charting. Strict input output charting, daily weights. NANCY: Most likely secondary to dehydration along with home dose of ARB. Resolved. Medical reconciliation done for nephrotoxic drugs. Hold off on losartan for now. Thrombocytopenia: Currently stable. Hemoglobin seems stable. Baseline platelet count around 150. Most likely secondary to viral infection. Continue to monitor. Continue to monitor for bleeding. Fall precaution. Hypertension: Goal blood pressure less than 140/90 mmHg. For now hold off on antihypertensives. Continue with metoprolol. We will uptitrate medication accordingly blood pressures. Advanced dementia CODE STATUS: Discussed in detail with patient's /DPOA. She states she is feeling making medical decisions for the patient. They have discussed in the past. DNR/DNI. Cardiac diet. SCDs for DVT prophylaxis. Hold off on medical prophylaxis given thrombocytopenia. Famotidine for PUD prophylaxis Attestations Medical Necessity Statement*: Requires further hospitalization for management of hypoxia secondary COVID-19 pneumonia, atrial fibrillation with rapid ventricular response, metabolic encephalopathy most likely because of worsening advanced dementia Time Spent in Patient Care: Greater than 35 minutes Coding Level of Care Code Acute Director Of Acquisitions for [facility] Fwd Diagnoses AMS (altered mental status) R41.82 Afib I48.91 Hypoxia R09.02 COVID-19 U07.1 Pneumonia J18.9 Acute kidney injury (nontraumatic) N17.9 Essential hypertension I10 Hypothyroid E03.9 Hypothyroidism type: acquired Alzheimer's dementia G30.9; F02.80 Thrombocytopenia D69.6
--- NOTE | 2021-08-27 18:00 | PC.NURSE ---
Pt is starting to get restless and more confused. He stated he needs to get out of here, his son is visiting him. pt tried to get out of the bed. HR is in 120s to 130s afib. Metoprolol IV given PRN order. Notified Dr. Reyez. received telephone orders to give pt PRN IV haldol and start pt back on precedex drip at fixed rate of 0.2 mcg/kg/hr.
[2021-08-27] MEDS: FUROsemide 10 mg/mL SDV 4mL 40 MG IVP (18:42)
[2021-08-27] MEDS: remdesivir 100 MG in sodium chloride 0.9% (100 ml) 100 ML IV (18:42)
[2021-08-27] MEDS: haloperidol inj 5 mg/mL INJ 1 mL 1 MG IVP ×2 (19:25→22:26)
[2021-08-27] MEDS: metoprolol tartrate 50 mg Tablet PO (20:55)
[2021-08-27] MEDS: atorvastatin 40 mg Tablet 20 MG PO (20:56)
--- NOTE | 2021-08-27 21:01 | ECG_ITS ---
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 Measurements Intervals [place] Rate: 91 P: [place]: QRS: 59 QRSD: 96 T: 51 QT: 367 QTc: 452 Interpretive Statements ATRIAL FIBRILLATION SEPTAL MYOCARDIAL INFARCTION , PROBABLY OLD [40+ ms Q WAVE IN V1/V2] Compared to ECG 08/25/2021 10:42:30 Aberrant conduction of supraventricular beat(s) no longer present Ventricular premature complex(es) no longer present Myocardial infarct finding still present Electronically Signed On 08-29-2021 8:52:48 SCROLL SAW OPERATOR by Lincoln Riley M.D. [email or web address] medical [email or web address].[email or web address]/[id number]
--- NOTE | 2021-08-27 21:05 | PC.NURSE ---
Pt IV was removed on left hand. pt still running in afib w/rvr of HR 130s to 140s. evening oral meds given. valsalva manuever instructed however pt HR did not slow down. Pt stated he is having chest pain when asked. Dr. lainez notified. He will put the orders.
[2021-08-27 21:42] LABS: Troponin(5th) Baseline 18 ng/L (0-15)
--- NOTE | 2021-08-27 23:01 | ECG_ITS ---
[facility] Test Date: 2021-08-28 Pat Name: Jalen Cannon Department: Room: 111 Gender: Male Manual Lathe Operator: : 1945 Requested By: Khai Porras Order Number: [id number] Randi MD: Lincoln Riley M.D. Measurements Intervals [place] Rate: 73 P: [place]: QRS: 62 QRSD: 95 T: 51 QT: 414 QTc: 459 Interpretive Statements ATRIAL FIBRILLATION Compared to ECG 08/27/2021 22:16:59 Myocardial infarct finding no longer present Electronically Signed On 08-29-2021 9:02:37 CAR WHACKER by Lincoln Riley M.D. [id number]
--- NOTE | 2021-08-27 23:40 | PC.NURSE ---
Addendum entered by Keyonna Patel RN 08/27/21 23:52: No one on one sitter available. Original Note: Unable to wean patient off Precedex. Patient attempting to pull restraints off. Patient's heart rate 120s-140s at beginning of shift. Primary nurse notified Dr. Porras who ordered Amiodarone drip. Prior to starting Amio drip, patient's heart rate came down to 80s. Dr. Porras notified by primary nurse and he ordered to not start drip. Day shift RN gave PO Metoprolol at 2054.
[2021-08-27 23:52] LABS: Troponin 5 2HR 19.48 ng/L (0-15)
[2021-08-27 23:55] LABS: Troponin 5 2HR Delta 1.48 ABS# (0-10)
[2021-08-28] VITALS (20 sets, daily range): BP systolic 74–121; BP diastolic 45–92; PULSE 61–140; RESP 13–19; TEMP 36.7–36.9; O2SAT 88–98; BMI 25.5
[2021-08-28] MEDS: piperacillin-tazobactam 3.375 GM in sodium chloride 0.9% (plus) 50 ML IV ×3 (01:00→22:24)
--- NOTE | 2021-08-28 01:10 | PC.NURSE ---
Addendum entered by Keyonna Patel RN 08/28/21 01:31: No one on one sitter available. Original Note: Patients currently has soft wrist restraints on. Patient has been getting PRN Hadol and has Precedex running at 0.2. Patient continually pulls IVs out and sits up on side of bed without assistance. ICU nurse came over to verify correct placement of restraints. Correct restraints placement verified by [address] Porras ordered okay to go up on Precedex drip to 0.7. Ordered to give 2 mg IM Haldol x1. If not better in 15 minutes, ordered to give 1 mg IM Ativan.
[2021-08-28] MEDS: haloperidol inj 5 mg/mL INJ 1 mL 2 MG IM (01:21)
[2021-08-28] MEDS: LORazepam 2 mg/mL INJ 1 mL 1 MG IM (01:50)
--- NOTE | 2021-08-28 03:01 | ECG_ITS ---
[facility] Test Date: 2021-08-28 Pat Name: Jalen Cannon Department: Room: 111 Gender: Male Rehabilitation Clerk: : 1945 Requested By: Khai Porras Order Number: [id number] Randi MD: Lincoln Riley M.D. Measurements Intervals [place] Rate: 80 P: [place]: QRS: 73 QRSD: 91 T: 67 QT: 412 QTc: 475 Interpretive Statements ATRIAL FIBRILLATION Compared to ECG 08/28/2021 00:07:22 No significant changes Electronically Signed On 08-29-2021 9:02:13 BITUMINOUS DISTRIBUTOR OPERATOR by Lincoln Riley M.D. [id number]
[2021-08-28 03:28] LABS: Hematocrit 35.1 % (42.0-52.0); Hemoglobin 11.3 g/dL (11.7-16.6); Mean Corpuscular HGB Conc 32.2 g/dL (30.0-36.0); Mean Corpuscular Hemoglobin 27.2 pg (28.0-34.0); Mean Corpuscular Volume 84.6 fl (80-94); Platelet Count 124 10^3/cmm (130-400); Red Blood Count 4.15 10^6/uL (4.1-5.3); Red Cell Distribution Width 16.5 % (12.1-15.1)
[2021-08-28 03:35] LABS: Mean Platelet Volume 10.2 fL (7.4-10.4)
[2021-08-28 03:43] LABS: Troponin 5 6HR 16.31 ng/L (0-15)
[2021-08-28] MEDS: ipratropium-albuterol 3 mL Neb INHALATION ×2 (03:44→07:40)
[2021-08-28 03:58] LABS: NT Pro B Type Natriuretic Pept 3569 pg/mL (0-450)
[2021-08-28 04:07] LABS: Troponin 5 6HR Delta -1.69 ng/L (0-12)
[2021-08-28 04:10] LABS: Absolute Neutrophil 52.9 10^3/cmm (1.4-6.5); Band Neutrophils Absolute 13.9 10^3/cmm (0.0-1.2); Eosinophils 0 %; Lymphocytes 0 %; Lymphocytes Absolute 0.6 10^3/cmm (1.2-3.4); Monocytes Absolute 1.1 10^3/cmm (0.1-0.6); Platelet Estimate Decreased (Normal); Segmented Neutrophils 70 %; Slide Review Slide Review Perform; Total Cells Counted 100 (0-100); White Blood Count 55.7 10^3/uL (4.0-10.0)
[2021-08-28] MEDS: metoprolol tartrate 1 mg/1 mL SDV 5 mL 5 MG IVP ×2 (05:49→08:51)
--- NOTE | 2021-08-28 05:49 | PC.NURSE ---
Patient's heart rate up to 120s-130s. PRN Metoprolol given.
[2021-08-28] MEDS: budesonide 0.5 mg/2 mL Neb INHALATION ×2 (07:40→19:49)
[2021-08-28] MEDS: azithromycin 250 mg Tablet 500 MG PO (08:42)
[2021-08-28] MEDS: benzonatate 100 mg Capsule PO (08:49)
[2021-08-28] MEDS: dilTIAZem 30 mg Tablet PO ×3 (08:49→17:43)
[2021-08-28] MEDS: zinc gluconate 50 mg Tablet PO (08:49)
[2021-08-28] MEDS: metoprolol tartrate 50 mg Tablet PO (08:49)
[2021-08-28] MEDS: ferrous gluconate 324 mg Tablet PO ×2 (08:49→17:46)
[2021-08-28] MEDS: levothyroxine 50 mcg Tablet PO (08:50)
[2021-08-28] MEDS: citalopram 20 mg Tablet PO (08:51)
[2021-08-28] MEDS: memantine 5 mg tablet 10 MG PO (08:52)
--- NOTE | 2021-08-28 09:28 | XR_ITS ---
WS: [id number] PORTABLE CHEST HISTORY: sob COMPARISON: 08/26/2021 Extensive reticular infiltrates and opacifications throughout the RIGHT lung. No significant improvem ent since the prior examination. There is very minimal interstitial thickening throughout the LEFT fermin ng. No dense areas of consolidation. No pleural effusion or pneumothorax. Cardiac size: Normal. Mediastinum/Aorta: Mild atherosclerosis aorta. Pulmonary arteries are enlarged with rapid tapering. No osseous abnormality seen. XR/XR chest 1V portable [id number] IMPRESSION: 1. Diffuse airspace disease throughout the RIGHT lung. No interval change or i mprovement. Less opacification throughout the LEFT lung. 2. Pulmonary hypertension.
[2021-08-28 10:19] LABS: Alanine Aminotransferase 18 U/L (0-41); Albumin Level 3.1 g/dL (3.5-5.2); Alkaline Phosphatase 43 IU/L (40-130); Anion Gap 18.7 (5-19); Aspartate Amino Transferase 26 U/L (0-40); Blood Urea Nitrogen 35 mg/dL (8-23); Calcium 8.4 mg/dL (8.5-10.5); Carbon Dioxide 19 mmol/L (22-29); Chloride 104 mmol/L (98-107); Globulin 2.5 g/dL (1.3-4.6); Glucose 134 mg/dL (65-115); Osmolality Calculated 296 mOsm/kg (285-295); Potassium 3.7 mmol/L (3.5-5.1); Sodium 138 mmol/L (136-145); Total Bilirubin 0.4 mg/dL (0.15-1.2); Total Protein 5.6 g/dL (6.6-8.7)
[2021-08-28] MEDS: FUROsemide 10 mg/mL SDV 4mL 40 MG IVP (10:30)
[2021-08-28 11:01] LABS: LAB Peripheral Smear Sent for Review
[2021-08-28 11:15] LABS: Procalcitonin 0.12 ng/mL (0-0.5)
--- NOTE | 2021-08-28 11:31 | PC.SOCIAL ---
IMM update IMM updated with patient's . Verbalized an understanding. Initialled, dated, timed, and placed in chart.
[2021-08-28] MEDS: ascorbic acid 500 mg Tablet PO (14:24)
[2021-08-28] MEDS: haloperidol inj 5 mg/mL INJ 1 mL 1 MG IVP (14:31)
[2021-08-28] MEDS: levalbuterol 0.63 mg/3 mL Neb INHALATION ×2 (15:26→19:50)
[2021-08-28] MEDS: ipratropium 0.5 mg/2.5 mL Neb INHALATION ×2 (15:26→19:49)
[2021-08-28 15:52] LABS: Vancomycin Trough 14.1 ug/mL (10-15)
[2021-08-28] MEDS: vancomycin 1,250 MG/250 ML PIGGYBACK 250 MG IV (17:00)
--- NOTE | 2021-08-28 17:19 | PM.PN ---
Subjective Subjective: Overnight patient had agitation. Is on Precedex of 0.2. Received 2 mg of Haldol and 1 mg IV Ativan. After receiving Ativan patient again became combative. Today morning on examination patient lying comfortably in bed on Precedex drip. Patient's at bedside as we do not have any sitters. has agreed to stay till afternoon. Patient is a lot more, with at bedside. Heart rate has remained in the 200s. Saturation 88% on room air requiring 3 L to maintain over 90%. Patient remains confused. Otherwise afebrile. Vitals/I&O/Wt Last Vital Signs Temp 98.0 F 08/28/21 04:00 Pulse 99 08/28/21 15:38 Resp 18 08/28/21 15:36 BP 91/53 08/28/21 04:00 Pulse Ox 96 08/28/21 15:36 08/28/21 08/28/21 08/28/21 06:59 14:59 22:59 Intake Total 507.066 / 2456.533 405.35 / 405.35 12.657 / 418.007 Output Total 1000 / 3000 1110 / 1110 Balance -492.934 / -543.467 -704.65 / -704.65 12.657 / -691.993 Weight last 48 hrs Weight 85.502 kg Physical Exam Narrative: General: No acute distress, confused, more calm today. HEENT: PERRLA, pupils bilaterally equal and reactive Chest: Normal vesicular breath sounds, no added sounds, equal good air entry bilaterally CVS: S1-S2 irregularly irregular, soft pansystolic murmur at apex, no tachycardia, no gallops, no rubs Abdomen: Soft, nontender, no organomegaly, bowel sounds present Neuro: No focal deficits, no facial deformity, Urinary Catheter Management: Coude: Cath Placed During This Visit: no Reason for Continuing Indwelling Catheter: Other Coude Latex Free: Cath Placed During This Visit: yes Reason for Continuing Indwelling Catheter: Other Urinary Catheter Date of Insertion: 08/27/21 Urinary Catheter Time of Insertion: 11:30 Data : 08/28/21 02:57 08/28/21 02:57 Micro: Microbiology 08/25/21 15:56 Gram Stain - Final Sputum - Expectorated Sputum Sputum Culture - Final A&P Assessment and plan (1) AMS (altered mental status): Most likely secondary to worsening of advanced dementia along with sundowning. Got worsened with Ativan given in the ER. Cannot rule out Covid encephalopathy. Precedex drip. Zyprexa 10 mg twice daily. Namenda 10 mg a.m., 20 mg every afternoon. At home he takes Namenda Exar 28 mg daily. Haldol 1 mg IV as needed every 4 hours. Do not give Ativan as it causes agitation. Added to allergy list. Check CT head. ABG. Status: Acute (2) Afib: Status: Acute (3) Hypoxia: Status: Acute (4) COVID-19: Status: Acute (5) Pneumonia: Status: Acute (6) Acute kidney injury (nontraumatic): Status: Acute (7) Essential hypertension: Status: Acute (8) Hypothyroid: Status: Acute Qualifiers: Hypothyroidism type: acquired Qualified Code(s): E03.9 - Hypothyroidism, unspecified (9) Alzheimer's dementia: Status: Acute (10) Thrombocytopenia: Status: Acute Plan Atrial fibrillation: RVR when agitated. Switch to amiodarone drip. Cardizem 30 mg every 6 hourly. Continue with metoprolol to 50 mg twice daily. Metoprolol 5 mg IV as needed for heart rate of more than 120 hold for systolic blood pressure of less than 100 mmHg. Not on anticoagulation at home most likely secondary to recurrent falls. Currently thrombocytopenic so we will hold off on anticoagulation. Echocardiogram results appreciated. Technically difficult study. Possibly normal EF. Hypoxia: Most likely is a combination of COVID-19 along with possible superimposed bacterial infection and CHF. COVID-19: Mild to moderate disease. Oxygen supplementation keeping saturation over 88%. Dexamethasone 6 mg daily. Remdesivir to finish a 5-day course. Vitamin C, zinc. DuoNeb every 6 hour, budesonide twice daily Pulmonary toilet with incentive spirometry flutter valve. We will monitor inflammatory markers including CRP, D-dimer every 48 hours. High suspicion of bacterial pneumonia. We will hold off on Actemra. D-dimer elevated. CTA negative for pulmonary embolism. For now hold off on anticoagulation given thrombocytopenia. Sputum culture pending. MRSA negative, Urine Legionella, bacterial antigen negative. Given elevated white count along with mild oxygen requirement for continue with vancomycin and Zosyn. Continue azithromycin for 5-day course for atypical coverage. Given hypoxia will try to keep patient as negative as possible. IV Lasix 40 mg once. Strict input output charting. Strict input output charting, daily weights. NANCY: Most likely secondary to dehydration along with home dose of ARB. Resolved. Medical reconciliation done for nephrotoxic drugs. Hold off on losartan for now. Thrombocytopenia: Currently stable. Hemoglobin seems stable. Baseline platelet count around 150. Most likely secondary to viral infection. Continue to monitor. Continue to monitor for bleeding. Fall precaution. Hypertension: Goal blood pressure less than 140/90 mmHg. For now hold off on antihypertensives. Continue with metoprolol. We will uptitrate medication accordingly blood pressures. Advanced dementia CODE STATUS: Discussed in detail with patient's /DPOA. She states she is feeling making medical decisions for the patient. They have discussed in the past. DNR/DNI. Cardiac diet. SCDs for DVT prophylaxis. Hold off on medical prophylaxis given thrombocytopenia. Famotidine for PUD prophylaxis Plan for day: Switch to amiodarone drip. Continue with Cardizem 30 mg every 6 hourly, metoprolol twice daily. Oxygen supplementation keeping saturation over 88%. Sitter for confusion. Add Zyprexa. Wean off Precedex as possible. Continue with Namenda and Celexa. IV 40 mg Lasix. Follow-up culture results. For now continue with vancomycin and Zosyn. Patient's care discussed in detail with at bedside. We discussed unfortunately patient's care is complicated because of episodes of agitation and confusion which is most likely because of worsening of dementia and sundowning. verbalized understanding. We discussed it would be best if patient can be discharged but unfortunately because of worsening leukocytosis it would be best to continue the IV antibiotics and monitor him for longer. verbalizes understanding but wants to take him home as soon as possible. She states he is 75, with severe dementia and is a DNR/DNI. Attestations Medical Necessity Statement*: Requires further hospitalization for management of hypoxia secondary COVID-19 pneumonia, bacterial pneumonia, atrial fibrillation rapid ventricular response. 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
[2021-08-28] MEDS: memantine 5 mg tablet 20 MG PO (17:43)
[2021-08-28] MEDS: OLANZapine 10 mg ODT PO (17:43)
[2021-08-28] MEDS: acetaminophen 325 mg Tablet 650 MG PO (17:46)
[2021-08-28] MEDS: famotidine 20 mg/2 mL INJ IVP (19:24)
[2021-08-28] MEDS: dexamethasone 4 mg/mL INJ 6 MG IVP (19:29)
[2021-08-28] MEDS: remdesivir 100 MG in sodium chloride 0.9% (100 ml) 100 ML IV (19:32)
--- NOTE | 2021-08-28 21:01 | PC.NURSE ---
Shift Note Frequent safety and comfort rounds continue. Orders and/or nursing care completed as indicated. Patient monitored for response to intervention and treatment(s). Education provided includes soft restraints assessment and monitoring, HR control. Patient and/or transportation services representative verbalizes understanding. Will continue to monitor. 0700 am-Beginning of shift pt is restless. Afib w/rvr in 120s to 130s. He is trying to pull out his IV catheter, oxygen, ward out and getting out of bed w/o assistance. He is able to remove his soft restraints. No sitter available so called and she is agreeable. She said she will come in to sit. informed and okay w/ it. RT informed of pt oxygen. Precedex drip started back on. Okay with Dr. Reyez to restart. Start on Amio drip. 10am- stayed in room. Dr discuss to her the treatments and plan. The soft restraints are off from pt's wrists from 10 am until 2 pm when the stated she can't stay longer. 1400pm- pt is getting restless but cooperative. he wants to get out of the bed. assisted to bedside commode for BM. very unsteady and short of breath upon exertion. hr ranges from 120s to 130s on amio drip. unable to keep his oxygen on due to him pulling it off. desat to 84%. Dr stated keep oxygen above 88-90%. RT notified. oxygen applied per RT. Precedex drip titrated. This nurse stayed in room mostly all afternoon due to him trying to get out of bed, removing his restraints and IV with his meds. He said he wants to go home. reoriented pt. still wants to go home. informed and he ordered to give zyprexa oral. 1800 pm-Pt converted to SR w/freq PAC's. w/HR in upper 60s. precedex decreased per protocol. Dr reyez notified on pt's conversion to SR. 1927 pm-precedex drip paused and stopped. BP-110/74.
[2021-08-29] VITALS (108 sets, daily range): BP systolic 70–171; BP diastolic 43–109; PULSE 51–103; RESP 10–27; TEMP 35.6–36.6; O2SAT 65–100
[2021-08-29] MEDS: piperacillin-tazobactam 3.375 GM in sodium chloride 0.9% (plus) 50 ML IV ×3 (04:47→17:30)
[2021-08-29 04:54] LABS: Basophils % 0.1 %; Hematocrit 30.1 % (42.0-52.0); Hemoglobin 9.7 g/dL (11.7-16.6); Lymphocytes % 2.2 %; Mean Corpuscular HGB Conc 32.2 g/dL (30.0-36.0); Mean Corpuscular Hemoglobin 27.3 pg (28.0-34.0); Mean Corpuscular Volume 84.8 fl (80-94); Mean Platelet Volume 13.8 fL (7.4-10.4); Monocytes # 2.3 10^3/uL (0.2-0.9); Monocytes % 5.1 %; Nucleated Red Blood Cells % 0 %; Platelet Count 129 10^3/cmm (130-400); Red Blood Count 3.55 10^6/uL (4.1-5.3); Red Cell Distribution Width 16.5 % (12.1-15.1)
[2021-08-29 05:15] LABS: Alanine Aminotransferase 19 U/L (0-41); Albumin Level 2.9 g/dL (3.5-5.2); Alkaline Phosphatase 40 IU/L (40-130); Anion Gap 13.7 (5-19); Aspartate Amino Transferase 21 U/L (0-40); Blood Urea Nitrogen 52 mg/dL (8-23); C Reactive Protein 22.7 mg/L (0.0-4.9); Calcium 8.3 mg/dL (8.5-10.5); Carbon Dioxide 21 mmol/L (22-29); Chloride 104 mmol/L (98-107); Globulin 2.7 g/dL (1.3-4.6); Glucose 180 mg/dL (65-115); Osmolality Calculated 299 mOsm/kg (285-295); Potassium 3.7 mmol/L (3.5-5.1); Sodium 135 mmol/L (136-145); Total Bilirubin 0.4 mg/dL (0.15-1.2); Total Protein 5.6 g/dL (6.6-8.7)
[2021-08-29] MEDS: levothyroxine 50 mcg Tablet PO (05:15)
[2021-08-29] MEDS: memantine 5 mg tablet 10 MG PO (05:15)
[2021-08-29 05:29] LABS: White Blood Count 44.3 10^3/uL (4.0-10.0)
[2021-08-29 05:30] LABS: Slide Review Slide Review Perform
[2021-08-29] MEDS: ipratropium 0.5 mg/2.5 mL Neb INHALATION ×3 (08:44→19:20)
[2021-08-29] MEDS: budesonide 0.5 mg/2 mL Neb INHALATION ×2 (08:44→19:20)
[2021-08-29] MEDS: levalbuterol 0.63 mg/3 mL Neb INHALATION ×3 (08:44→19:20)
[2021-08-29] MEDS: dilTIAZem 30 mg Tablet PO (09:03)
[2021-08-29] MEDS: ferrous gluconate 324 mg Tablet PO ×2 (09:03→17:32)
[2021-08-29] MEDS: FUROsemide 10 mg/mL SDV 4mL 40 MG IVP (09:03)
[2021-08-29] MEDS: azithromycin 250 mg Tablet 500 MG PO (09:03)
[2021-08-29] MEDS: zinc gluconate 50 mg Tablet PO (09:03)
[2021-08-29] MEDS: amiodarone 200 mg Tablet PO ×2 (09:03→17:31)
[2021-08-29] MEDS: benzonatate 100 mg Capsule PO ×2 (09:03→22:46)
[2021-08-29] MEDS: citalopram 20 mg Tablet PO (09:03)
[2021-08-29] MEDS: vancomycin 1,250 MG/250 ML PIGGYBACK 250 MG IV (09:47)
[2021-08-29] MEDS: famotidine 20 mg/2 mL INJ IVP ×2 (09:47→22:45)
[2021-08-29] MEDS: OLANZapine 10 mg ODT PO ×2 (09:47→18:08)
[2021-08-29] MEDS: metoprolol tartrate 50 mg Tablet PO (09:47)
[2021-08-29] MEDS: ascorbic acid 500 mg Tablet PO (12:55)
[2021-08-29] MEDS: memantine 5 mg tablet 20 MG PO (17:32)
[2021-08-29] MEDS: remdesivir 100 MG in sodium chloride 0.9% (100 ml) 100 ML IV (17:32)
[2021-08-29] MEDS: dexamethasone 4 mg/mL INJ 3 MG IVP (18:19)
--- NOTE | 2021-08-29 19:23 | PM.PN ---
Subjective Subjective: Confused. Denies chest pain or pressure. Denies trouble breathing. Asking for his mother. When asked if he means his , states he has. Vitals/I&O/Wt Last Vital Signs Temp 97.2 F L 08/29/21 15:45 Pulse 55 L 08/29/21 16:08 Resp 13 08/29/21 16:08 BP 100/60 08/29/21 16:08 Pulse Ox 92 08/29/21 16:08 08/29/21 08/29/21 08/29/21 06:59 14:59 22:59 Intake Total 50 / 1579.039 470 / 470 Output Total 1090 / 1090 500 / 1590 Balance 50 / -1440.961 -620 / -620 -500 / -1120 Weight last 48 hrs Weight 85.502 kg Physical Exam Const: COMMON NORMALS: no acute distress ORIENTATION/CONSCIOUSNESS: Yes confused HENMT: COMMON NORMALS: oropharynx normal Neck/C-Spine: COMMON NORMALS: no JVD Resp: COMMON NORMALS: normal respiratory effort and clear to auscultation bilaterally AUSCULTATION: clear to auscultation bilaterally Cardio: COMMON NORMALS: no JVD, regular rhythm, S1 normal heart sound present, S2 normal heart sound present and No murmurs present (Cardio) RATE: bradycardic RHYTHM: regular rhythm HEART SOUNDS: S1 normal heart sound present and S2 normal heart sound present GI: COMMON NORMALS: Normal to inspection, nondistended, normoactive bowel sounds present, Soft to palpation and non-tender PALPATION: Yes Soft to palpation Extremity: COMMON NORMALS: no joint enlargement and no pedal edema Neuro: COMMON NORMALS: moves all extremities Skin: COMMON NORMALS: no rashes or lesions noted GENERAL SKIN EXAM: no rashes or lesions noted Urinary Catheter Management: Coude: Cath Placed During This Visit: no Reason for Continuing Indwelling Catheter: Acute Urinary Retention or Obstruction Coude Latex Free: Cath Placed During This Visit: yes Reason for Continuing Indwelling Catheter: Other Urinary Catheter Date of Insertion: 08/27/21 Urinary Catheter Time of Insertion: 11:30 Data : 08/29/21 04:28 08/29/21 04:28 A&P Assessment and plan (1) Bradycardia: Precedex stopped. Metoprolol held. Diltiazem held. Continues on PO amiodarone for now. Off amiodarone. Monitor on telemetry. Atropine ordered, but did not require it. Heart rates have been gradual improving. Status: Acute (2) Hypotension: With bradycardia. Mean arterial pressure as low as 57, transiently. Mostly staying in the 60s. Medications held as above. Blood pressure is improving. Monitor. Status: Acute (3) NANCY (acute kidney injury): Possibly due to soft blood pressures. Limited oral intake. has been feeding him today. Monitor blood pressures. Medications held as above due to bradycardia. Reassess renal function. Hold ARB. Status: Acute (4) AMS (altered mental status): Most likely secondary to worsening of advanced dementia along with sundowning. Precedex discontinued due to bradycardia. Reorient. Return home as soon as able to. No agitation today. Appears to responded well to starting olanzapine. NB, avoid Ativan as did worse with that per reports. Haldol 1 mg IV as needed every 4 hours. No acute infarct or hemorrhage on CT head. No ventriculomegaly. Status: Acute (5) Afib: Optimization of A. fib with RVR control. Medications held as above due to bradycardia. Continue amiodarone for now. In case blood pressure stabilized consider resuming lower dose metoprolol. Not on anticoagulation due to risk of bleeding. Status: Acute (6) Hypoxia: Severe COVID-19 with hypoxia, oxygenation improving, down to 5 L nasal cannula oxygen requirement. Status: Acute (7) COVID-19: Improving. Continue to wean down oxygen as tolerating. Decrease Decadron dose due to confusion. Consider discontinuation. Completed remdesivir. Status: Acute (8) Pneumonia: Continue with empiric antibiotic coverage for now with Zosyn, vancomycin. Severe leukocytosis, possible chemo reaction, showing improvement today down to 44,000 Status: Acute (9) Essential hypertension: Status: Acute (10) Hypothyroid: Status: Acute Qualifiers: Hypothyroidism type: acquired Qualified Code(s): E03.9 - Hypothyroidism, unspecified (11) Alzheimer's dementia: Status: Acute (12) Thrombocytopenia: Status: Acute Attestations Medical Necessity Statement*: Continue admission for optimization of control of A. fib with RVR, adjustment of medications due to bradycardia, hypotension, reassessment of NANCY, optimization of of medications given acute encephalopathy superimposed on dementia. Disposition planning. 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
[2021-08-29] MEDS: atorvastatin 40 mg Tablet 20 MG PO (22:45)
[2021-08-30] VITALS (24 sets, daily range): BP systolic 111–176; BP diastolic 62–94; PULSE 58–108; RESP 11–22; TEMP 35.7–36.6; O2SAT 82–99
[2021-08-30] MEDS: piperacillin-tazobactam 3.375 GM in sodium chloride 0.9% (plus) 50 ML IV ×3 (02:00→16:31)
[2021-08-30 02:36] LABS: Basophils % 0.1 %; Hemoglobin 10.5 g/dL (11.7-16.6); Lymphocytes # 1.3 10^3/uL (0.8-4.8); Lymphocytes % 2.3 %; Mean Corpuscular HGB Conc 32.8 g/dL (30.0-36.0); Mean Corpuscular Hemoglobin 27.5 pg (28.0-34.0); Mean Corpuscular Volume 83.8 fl (80-94); Mean Platelet Volume 13.3 fL (7.4-10.4); Monocytes # 3.9 10^3/uL (0.2-0.9); Neutrophils # 38.16 10^3/uL (1.8-7.7); Neutrophils % 68.8 %; Nucleated Red Blood Cells % 0.1 %; Platelet Count 159 10^3/cmm (130-400); Red Blood Count 3.82 10^6/uL (4.1-5.3); Red Cell Distribution Width 16.7 % (12.1-15.1)
[2021-08-30 02:53] LABS: Alanine Aminotransferase 19 U/L (0-41); Albumin Level 3.3 g/dL (3.5-5.2); Alkaline Phosphatase 49 IU/L (40-130); Anion Gap 15.7 (5-19); Aspartate Amino Transferase 18 U/L (0-40); Blood Urea Nitrogen 50 mg/dL (8-23); Calcium 8.1 mg/dL (8.5-10.5); Carbon Dioxide 23 mmol/L (22-29); Chloride 107 mmol/L (98-107); Globulin 2.4 g/dL (1.3-4.6); Glucose 172 mg/dL (65-115); Magnesium 2.2 mg/dL (1.7-2.3); Osmolality Calculated 311 mOsm/kg (285-295); Potassium 3.7 mmol/L (3.5-5.1); Sodium 142 mmol/L (136-145); Total Bilirubin 0.5 mg/dL (0.15-1.2); Total Protein 5.7 g/dL (6.6-8.7)
[2021-08-30 03:05] LABS: Slide Review Slide Review Perform
[2021-08-30 03:07] LABS: White Blood Count 55.5 10^3/uL (4.0-10.0)
[2021-08-30] MEDS: vancomycin 1,250 MG/250 ML PIGGYBACK 250 MG IV (05:11)
[2021-08-30] MEDS: levothyroxine 50 mcg Tablet PO (06:46)
[2021-08-30] MEDS: memantine 5 mg tablet 10 MG PO (06:47)
--- NOTE | 2021-08-30 07:33 | PC.NURSE ---
Patient presedex gtt off at beginning of my shift. Patient calm most of night. Still has soft wrists restraints. Confused. Will continue to monitor.
[2021-08-30] MEDS: albumin 12.5 GM/250 ML VIAL IV (08:56)
[2021-08-30] MEDS: famotidine 20 mg/2 mL INJ IVP (09:07)
[2021-08-30] MEDS: OLANZapine 10 mg ODT PO ×2 (09:07→18:07)
[2021-08-30] MEDS: ferrous gluconate 324 mg Tablet PO ×2 (09:08→18:08)
[2021-08-30] MEDS: amiodarone 200 mg Tablet PO ×2 (09:08→18:08)
[2021-08-30] MEDS: azithromycin 250 mg Tablet 500 MG PO (09:08)
[2021-08-30] MEDS: zinc gluconate 50 mg Tablet PO (09:08)
[2021-08-30] MEDS: citalopram 20 mg Tablet PO (09:08)
[2021-08-30] MEDS: benzonatate 100 mg Capsule PO ×2 (09:08→09:09)
[2021-08-30] MEDS: metoprolol tartrate 50 mg Tablet PO (09:08)
[2021-08-30] MEDS: levalbuterol 0.63 mg/3 mL Neb INHALATION ×3 (09:11→21:23)
[2021-08-30] MEDS: ipratropium 0.5 mg/2.5 mL Neb INHALATION ×3 (09:11→21:23)
[2021-08-30] MEDS: budesonide 0.5 mg/2 mL Neb INHALATION ×2 (09:11→21:23)
--- NOTE | 2021-08-30 10:41 | PC.SOCIAL ---
IMM update IMM updated with patient's . Verbalized an understanding. Initialled, dated, timed, and placed in chart.
[2021-08-30] MEDS: ascorbic acid 500 mg Tablet PO (12:31)
[2021-08-30] MEDS: memantine 5 mg tablet 20 MG PO (18:08)
--- NOTE | 2021-08-30 20:08 | P.PN_ITS ---
Subjective Subjective: Denies pain or discomfort. Denies chest pain or pressure. Not lightheaded. Blood pressure is better today. In the afternoon noted episode of diarrhea. Vitals/I&O/Wt Last Vital Signs Temp 97.9 F 08/30/21 19:58 Pulse 63 08/30/21 19:58 Resp 15 08/30/21 19:58 BP 134/81 08/30/21 19:58 Pulse Ox 93 08/30/21 19:58 08/30/21 08/30/21 08/30/21 06:59 14:59 22:59 Intake Total 300 / 940 660 / 660 45 / 705 Output Total 600 / 3340 250 / 250 475 / 725 Balance -300 / -2400 410 / 410 -430 / -20 Weight last 48 hrs Weight 85.275 kg Physical Exam Const: COMMON NORMALS: no acute distress ORIENTATION/CONSCIOUSNESS: Yes confused HENMT: COMMON NORMALS: oropharynx normal Neck/C-Spine: COMMON NORMALS: no JVD Resp: COMMON NORMALS: normal respiratory effort and clear to auscultation bilaterally AUSCULTATION: clear to auscultation bilaterally Cardio: COMMON NORMALS: no JVD, regular rate, regular rhythm, S1 normal heart sound present, S2 normal heart sound present and No murmurs present (Cardio) RATE: regular rate RHYTHM: regular rhythm HEART SOUNDS: S1 normal heart sound present and S2 normal heart sound present GI: COMMON NORMALS: Normal to inspection, nondistended, normoactive bowel sounds present, Soft to palpation and non-tender PALPATION: Yes Soft to palpation Extremity: COMMON NORMALS: no joint enlargement and no pedal edema Neuro: COMMON NORMALS: moves all extremities Skin: COMMON NORMALS: no rashes or lesions noted GENERAL SKIN EXAM: no rashes or lesions noted Urinary Catheter Management: Coude: Cath Placed During This Visit: no Reason for Continuing Indwelling Catheter: Acute Urinary Retention or Obstruction Coude Latex Free: Cath Placed During This Visit: yes Reason for Continuing Indwelling Catheter: Acute Urinary Retention or Obstruction Urinary Catheter Date of Insertion: 08/27/21 Urinary Catheter Time of Insertion: 11:30 Data : 08/30/21 02:25 08/30/21 02:25 Micro: Microbiology 08/25/21 13:51 Blood Culture - Final Blood NO GROWTH AFTER 5 DAYS 08/25/21 13:45 Blood Culture - Final Blood NO GROWTH AFTER 5 DAYS A&P Assessment and plan (1) NANCY (acute kidney injury): Hypotension now resolved. Blood pressure appears to be stabilizing. Given albumin infusion. Stop vancomycin. Reassess renal function. Hold ARB. Discussed with his . Status: Acute (2) Leukocytosis: Worsened leukocytosis again today, 55.5. Noted episode of diarrhea, stool not collected for C. difficile Discussed with nursing staff to collect with next BM. Peripheral smear. Continue Zosyn for now. MRSA PCR negative, stop vancomycin. All cultures so far negative. Stop Decadron. Status: Acute (3) Bradycardia: Bradycardia had resolved, this morning heart rates in the 70s-80s. Restarted on metoprolol. Continue to hold diltiazem. Blood pressure is better. Off Precedex. Continues on PO amiodarone. Off amiodarone. Monitor on telemetry. Atropine ordered, but did not require it. Heart rates have been gradual improving. Status: Acute (4) Hypotension: Resolved, as above. Status: Acute (5) AMS (altered mental status): Most likely secondary to worsening of advanced dementia along with sundowning. Precedex discontinued due to bradycardia. Reorient. Return home as soon as able to. No agitation today. Appears to responded well to starting olanzapine. NB, avoid Ativan as did worse with that per reports. Haldol 1 mg IV as needed every 4 hours. No acute infarct or hemorrhage on CT head. No ventriculomegaly. Status: Acute (6) Afib: Optimization of A. fib with RVR control. Medications held as above due to bradycardia. Continue amiodarone for now. In case blood pressure stabilized consider resuming lower dose metoprolol. Not on anticoagulation due to risk of bleeding. Status: Acute (7) Hypoxia: Severe COVID-19 with hypoxia, oxygenation improving, down to 5 L nasal cannula oxygen requirement. Status: Acute (8) COVID-19: Gradually improving oxygenation. Continues to require nasal cannula support. Improving. Continue to wean down oxygen as tolerating. Stop Decadron. Completed remdesivir. Status: Acute (9) Pneumonia: Continue with empiric antibiotic coverage for now with Zosyn. Stop vancomycin. Stop Decadron. 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
[2021-08-30 20:58] LABS: LAB Peripheral Smear Sent for Review
[2021-08-31] VITALS (28 sets, daily range): BP systolic 114–175; BP diastolic 65–115; PULSE 77–127; RESP 12–23; TEMP 36.3–36.6; O2SAT 75–99
[2021-08-31] MEDS: metoprolol tartrate 50 mg Tablet PO ×3 (00:15→19:38)
[2021-08-31] MEDS: benzonatate 100 mg Capsule PO ×3 (00:15→15:51)
[2021-08-31] MEDS: atorvastatin 40 mg Tablet 20 MG PO (00:15)
[2021-08-31] MEDS: famotidine 20 mg/2 mL INJ IVP (00:16)
[2021-08-31] MEDS: piperacillin-tazobactam 3.375 GM in sodium chloride 0.9% (plus) 50 ML IV ×2 (01:03→10:57)
[2021-08-31 04:09] LABS: Hematocrit 31.4 % (42.0-52.0); Hemoglobin 9.9 g/dL (11.7-16.6); Mean Corpuscular HGB Conc 31.5 g/dL (30.0-36.0); Mean Corpuscular Hemoglobin 27.4 pg (28.0-34.0); Mean Platelet Volume 12.3 fL (7.4-10.4); Platelet Count 181 10^3/cmm (130-400); Red Blood Count 3.61 10^6/uL (4.1-5.3); Red Cell Distribution Width 16.9 % (12.1-15.1)
[2021-08-31 04:36] LABS: Alanine Aminotransferase 29 U/L (0-41); Albumin Level 3.2 g/dL (3.5-5.2); Alkaline Phosphatase 47 IU/L (40-130); Anion Gap 13.4 (5-19); Aspartate Amino Transferase 24 U/L (0-40); Blood Urea Nitrogen 50 mg/dL (8-23); Calcium 8.9 mg/dL (8.5-10.5); Carbon Dioxide 23 mmol/L (22-29); Chloride 111 mmol/L (98-107); Globulin 2.8 g/dL (1.3-4.6); Glucose 101 mg/dL (65-115); Osmolality Calculated 311 mOsm/kg (285-295); Potassium 3.4 mmol/L (3.5-5.1); Sodium 144 mmol/L (136-145); Total Bilirubin 0.7 mg/dL (0.15-1.2)
[2021-08-31 04:48] LABS: Slide Review Slide Review Perform
[2021-08-31 04:49] LABS: White Blood Count 59.4 10^3/uL (4.0-10.0)
[2021-08-31 04:54] LABS: Absolute Neutrophil 49.9 10^3/cmm (1.4-6.5); Absolute Segmented Neutrophil 45.1 10/cmm (1.6-7.1); Band Neutrophils Absolute 4.8 10^3/cmm (0.0-1.2); Eosinophils 0 %; Lymphocytes 6 %; Lymphocytes Absolute 4.8 10^3/cmm (1.2-3.4); Monocytes Absolute 2.4 10^3/cmm (0.1-0.6); Platelet Estimate Normal (Normal); Segmented Neutrophils 76 %; Total Cells Counted 100 (0-100)
[2021-08-31] MEDS: levothyroxine 50 mcg Tablet PO (05:50)
[2021-08-31] MEDS: memantine 5 mg tablet 10 MG PO (05:53)
[2021-08-31] MEDS: ferrous gluconate 324 mg Tablet PO ×2 (08:04→18:25)
[2021-08-31] MEDS: amiodarone 200 mg Tablet PO ×2 (08:05→18:25)
[2021-08-31] MEDS: citalopram 20 mg Tablet PO (08:06)
[2021-08-31] MEDS: famotidine 20 mg Tablet PO ×2 (08:06→18:25)
[2021-08-31] MEDS: zinc gluconate 50 mg Tablet PO (08:07)
[2021-08-31] MEDS: OLANZapine 10 mg ODT PO ×2 (08:09→18:27)
[2021-08-31] MEDS: levalbuterol 0.63 mg/3 mL Neb INHALATION ×2 (09:18→14:53)
[2021-08-31] MEDS: budesonide 0.5 mg/2 mL Neb INHALATION (09:18)
[2021-08-31] MEDS: ipratropium 0.5 mg/2.5 mL Neb INHALATION ×2 (09:18→14:53)
[2021-08-31] MEDS: ascorbic acid 500 mg Tablet PO (12:56)
[2021-08-31] MEDS: metoprolol tartrate 1 mg/1 mL SDV 5 mL 5 MG IVP (16:25)
--- NOTE | 2021-08-31 17:32 | P.DS_ITS ---
Discharge Providers Date of Admission: 08/25/21 15:30 Date of Discharge: August 31, 2021 Attending Provider at Admission: Jhon Mcleod MD Attending Provider at Discharge: Gómez Barraza Primary Care Provider: MARCI Frias Diagnoses at Discharge Discharge Diagnosis (1) NANCY (acute kidney injury): Status: Acute (2) Leukocytosis: Status: Acute (3) Bradycardia: Status: Acute (4) Hypotension: Status: Acute (5) AMS (altered mental status): Status: Acute (6) Afib: Status: Acute (7) Hypoxia: Status: Acute (8) COVID-19: Status: Acute (9) Pneumonia: Status: Acute (10) Essential hypertension: Status: Acute (11) Hypothyroid: Status: Acute (12) Alzheimer's dementia: Status: Acute (13) Thrombocytopenia: Status: Acute Reason for Visit Reason for Visit: AFIB Acting up Hospital Course Hospital Course Pleasant 75-year-old gentleman with advanced dementia, taking care of by his at home, with medical history also of A. fib, HTN, hypothyroidism, was brought in by his for assessment management due to difficulty breathing of 5 days preceding the admission, with cough productive of phlegm, as well as A. fib with RVR for which due to risk of falls he is not on blood thinner. On presentation found to have COVID-19, severe illness due to requiring supplemental oxygen, with requirement of as much as 8 L by nasal cannula. Hospitalization was complicated by episodes of encephalopathy superimposed on chronic dementia, intermittently did require soft restraints. Was started also on olanzapine, citalopram, continued on memantine. Through the hospitalization also with noted elevated WBC count. No obvious other source of infection apart from COVID-19, investigated with CT chest abdomen pelvis 0.08/26 with finding of hazy bilateral pulmonary opacities, no PE although with limited evaluation of pulmonary arteries, in the abdomen diverticulosis without diverticulitis, with examination limited by motion. Head CT without acute infarct or hemorrhage. Mild parenchymal atrophy and chronic small vessel disease. Microbiologic studies with negative bacterial antigens including Legionella. Blood cultures negative. Sputum culture with moderate mixed upper respiratory yeny. MRSA PCR negative. Urinalysis not suggestive of UTI. Due to concern for occult superimposed bacterial pneumonia, possible other infection was maintained empirically on Zosyn, vancomycin. For COVID-19 completed course of remdesivir, Decadron, with some further improvement in confusion with discontinuation of steroid. Transiently did require Precedex support, although this had to be discontinued due to noted bradycardia. For atrial fibrillation initially managed with Cardizem drip, IV metoprolol, transition to metoprolol and Cardizem by mouth. Cardizem and metoprolol transiently held due to bradycardia and hypotension which improved after discontinuation of Precedex, metoprolol was resumed, Cardizem not continued for now. His metoprolol dose is increased to 50 mg and is continued on twice daily dosing for better heart rate control. Hypotension resolved. Acute kidney injury with transient rise in creatinine noted with peak creatinine at 1.7 on 08/30. Possibly related to soft blood pressures with bradycardia. Vancomycin discontinued as well in case contributing given lack of evidence of infection, negative MRSA. Leukocytosis quite severe, up to 59.4. Had one episode of loose stool, but no significant diarrhea, not enough for stool sample to be collected for C. difficile. C. difficile less likely. Peripheral smear, however, which was obtained for additional assessment did reveal concerning findings with leukocytosis with left shift, please neutrophilia with multilineage dysplasia. Segmented neutrophil, metamyelocytes and myelocytes, normocytic anemia with hypochromia, nucleated red blood cells identified. Thrombocytopenia with giant platelets. Atypical lymphocytes identified. Downy cells identified. No overt blasts seen, however, due to multilineage dysplasia, nucleated red blood cells and atypical lymphocytes smear is concerning for an impending myelodysplastic disorder with concern for leukemia/lymphoma, flow cytometry has been requested. This finding was also discussed with his . They had not had an overt discussion that would cover his wishes for further work-up or treatment of such a condition, however, she does not think that that is what he would want especially given his overall condition. However, they will revisit further with her primary care provider and discuss again also once flow cytometry results are available with consideration of whether to pursue further assessment including bone marrow biopsy with follow-up with hematology. As his oxygenation has been gradually improving, currently down to requiring 4 L by nasal cannula, with delirium likely exacerbated from being in unfamiliar surroundings in the setting of dementia, his would much prefer to continue his recovery at home where he would be more comfortable, and as overall his mental status and oxygenation have improved, he is discharging home with home oxygen and outpatient follow-up. Please also recheck his renal function to ascertain continued improvement. He is asked to hold losartan for now. Consider resumption of losartan depending on renal function stabilization and blood pressure needs. HCTZ for now is discontinued. Physical Exam Const: COMMON NORMALS: no acute distress GENERAL APPEARANCE: cooperative and comfortable ORIENTATION/CONSCIOUSNESS: Yes awake HENMT: COMMON NORMALS: oropharynx normal Neck/C-Spine: COMMON NORMALS: no JVD Resp: COMMON NORMALS: normal respiratory effort and clear to auscultation bilaterally AUSCULTATION: clear to auscultation bilaterally Cardio: COMMON NORMALS: no JVD, regular rate, regular rhythm, S1 normal heart sound present, S2 normal heart sound present and No murmurs present (Cardio) RATE: regular rate RHYTHM: regular rhythm HEART SOUNDS: S1 normal heart sound present and S2 normal heart sound present GI: COMMON NORMALS: Normal to inspection, nondistended, normoactive bowel sounds present, Soft to palpation and non-tender PALPATION: Yes Soft to palpation Extremity: COMMON NORMALS: no joint enlargement and no pedal edema Neuro: COMMON NORMALS: moves all extremities Skin: COMMON NORMALS: no rashes or lesions noted GENERAL SKIN EXAM: no rashes or lesions noted Urinary Catheter Management: Coude: Cath Placed During This Visit: yes, but has since been removed by the nurse Reason for Continuing Indwelling Catheter: Accurate Measurement of Urinary Output in Critically Ill Patients Date Urinary Catheter Removed: 08/31/21 Time Urinary Catheter Discontinued: 17:23 Coude Latex Free: Cath Placed During This Visit: yes, but has since been removed by the nurse Reason for Continuing Indwelling Catheter: Accurate Measurement of Urinary Output in Critically Ill Patients Urinary Catheter Date of Insertion: 08/27/21 Urinary Catheter Time of Insertion: 11:30 Date Urinary Catheter Removed: 08/31/21 Time Urinary Catheter Discontinued: 17:22 Discharge Data Studies Completed and Pending Completed Studies During Hospitalization Category Date Time Status CT angio chest w abd pel w con Routine Cat Scan 08/26/21 17:[address] head wo con* [id number] Routine Cat Scan 08/26/21 17:23 Completed XR chest 1V portable [id number] Q48H Exams 08/26/21 16:45 Completed XR chest 1V portable [id number] Routine Exams 08/28/21 09:28 Completed XR chest 1V portable [id number] Stat Exams 08/25/21 10:53 Completed CV. echo complete* [id number] Routine Ultrasound 08/26/21 16:41 Completed Pending at discharge Category Date Time Status Clostridioides Difficile PCR Routine Lab 08/26/21 17:46 Ordered Complete Blood Count w/Auto AM LABS Lab 09/01/21 04:00 Ordered Comprehensive Metabolic Panel AM LABS Lab 09/01/21 04:00 Ordered Enteric Bacterial Panel by PCR Routine Lab 08/26/21 17:46 Ordered Enteric Parasite Panel by PCR Routine Lab 08/26/21 17:46 Ordered Immunochemical Fecal OCB Routine Lab 08/26/21 17:46 Ordered Lactoferrin Routine Lab 08/26/21 17:46 Ordered Miscellaneous Test Routine Lab 08/31/21 08:45 Received Radiology Impressions Chest/Abdomen/Pelvis CT 08/26/21 17:23 IMPRESSION: 1. Hazy bilateral pulmonary opacities which are consistent with COVID-19. 2. Evaluation of pulmonary arteries is somewhat limited secondary to respiratory motion. 3. No pulmonary embolism. IMPRESSION: 1. The examination is limited by patient motion. 2. Diverticulosis without diverticulitis. COMMENTS: Consistent with the [employer]'s Incidental Findings Committee white paper (J Am Kelli Radiol 2018): Any incidental renal lesion less than 1 cm or classified as too small to characterize, or any incidental cystic renal lesion characterized as simple-appearing, is likely benign. No follow-up imaging is recommended for these lesions per consensus recommendations based on imaging criteria. Head CT 08/26/21 17:23 IMPRESSION: 1. No acute infarct or hemorrhage. 2. No calvarial or skull base fracture. 3. Mild parenchymal atrophy and chronic small vessel disease. Chest X-Ray 08/28/21 09:28 IMPRESSION: 1. Diffuse airspace disease throughout the RIGHT lung. No interval change or improvement. Less opacification throughout the LEFT lung. 2. Pulmonary hypertension. Laboratory Results WBC 59.4 10^3/uL (4.0-10.0) H* 08/31/21 03:53 RBC 3.61 10^6/uL (4.1-5.3) L 08/31/21 03:53 Hgb 9.9 g/dL (11.7-16.6) L 08/31/21 03:53 Hct 31.4 % (42.0-52.0) L 08/31/21 03:53 MCV 87.0 fl (80-94) 08/31/21 03:53 MCH 27.4 pg (28.0-34.0) L 08/31/21 03:53 MCHC 31.5 g/dL (30.0-36.0) 08/31/21 03:53 RDW 16.9 % (12.1-15.1) H 08/31/21 03:53 Plt Count 181 10^3/cmm (130-400) 08/31/21 03:53 MPV 12.3 fL (7.4-10.4) H 08/31/21 03:53 Neut % (Auto) 68.8 % 08/30/21 02:25 Lymph % (Auto) Not Reportable 08/31/21 03:53 [place] % (Auto) Not Reportable 08/31/21 03:53 Eos % (Auto) 0.0 % 08/30/21 02:25 Baso % (Auto) 0.1 % 08/30/21 02:25 Neut # (Auto) 38.16 10^3/uL (1.8-7.7) H 08/30/21 02:25 Lymph # (Auto) Not Reportable 08/31/21 03:53 [place] # (Auto) Not Reportable 08/31/21 03:53 Eos # (Auto) 0.0 10^3/uL (0.0-0.8) 08/30/21 02:25 Baso # (Auto) 0.0 10^3/uL (0.0-0.1) 08/30/21 02:25 Nucleated RBC % (auto) 0.1 % 08/30/21 02:25 Total Counted 100 (0-100) 08/31/21 03:53 Atypical Lymphs % 2.0 % (0-5) 08/31/21 03:53 Absolute Neutrophils 49.9 10^3/cmm (1.4-6.5) H 08/31/21 03:53 Segmented Neutrophils 76 % 08/31/21 03:53 Abs Segm Neuts (Man) 45.1 10/cmm (1.6-7.1) H 08/31/21 03:53 Band Neutrophils 8.0 % 08/31/21 03:53 Abs Band Neuts (Man) 4.8 10^3/cmm (0.0-1.2) H 08/31/21 03:53 Absolute Lymphocytes 4.8 10^3/cmm (1.2-3.4) H 08/31/21 03:53 Lymphocytes (Manual) 6 % 08/31/21 03:53 Monocytes (Manual) 4.0 % 08/31/21 03:53 Absolute Monocytes 2.4 10^3/cmm (0.1-0.6) H 08/31/21 03:53 Eosinophils (Manual) 0 % 08/31/21 03:53 Absolute Eosinophils 0.0 10^3/cmm (0.0-0.7) 08/31/21 03:53 Basophils (Manual) 0.0 % 08/31/21 03:53 Absolute Basophils 0.0 10^3/cmm (0.0-0.2) 08/31/21 03:53 Metamyelocytes 2.0 % 08/31/21 03:53 Myelocytes 2.0 % 08/31/21 03:53 Nucleated RBCs # 0.0 /100WBC 08/30/21 02:25 Platelet Estimate Normal (Normal) 08/31/21 03:53 ESR 37 mm/hr (0-10) H 08/25/21 11:33 Fibrinogen 504 mg/dL (174-498) H 08/25/21 17:33 D-Dimer 1.55 ug/mIFEU (0-0.59) H 08/26/21 17:39 Specimen Type Arterial 08/27/21 04:00 Sample Site Radial, left 08/27/21 04:00 ABG pH 7.41 (7.35-7.45) 08/27/21 04:00 ABG pCO2 34.5 mmHg (35-45) L 08/27/21 04:00 ABG pO2 69.6 mmHg (80.0-100.0) L 08/27/21 04:00 ABG HCO3 21.9 mmol/L (22-26) L 08/27/21 04:00 ABG O2 Saturation 95.2 08/27/21 04:00 ABG Base Excess -2.2 mmol/L (-2.0-2.0) L 08/27/21 04:00 Chato Test Pos 08/27/21 04:00 A-a O2 Gradient 5.0 mmHg (5-10) 08/27/21 04:00 Hematocrit 34.6 % (42-52) L 08/27/21 04:00 Hgb O2 Saturation 94.0 % (95-100) L 08/27/21 04:00 Carboxyhemoglobin 0.8 %THgb (0.4-20.1) 08/27/21 04:00 Methemoglobin 0.5 % (0.4-1.5) 08/27/21 04:00 Total Hemoglobin 11.3 g/dL (14-18) L 08/27/21 04:00 Sodium 137.0 mmol/L (131-143) 08/27/21 04:00 Potassium 4.0 mmol/L (3.5-5.0) 08/27/21 04:00 Glucose 193.0 mg/dL (70-115) H 08/27/21 04:00 Ionized Calcium 1.2 mmol/L (1.1-1.4) 08/27/21 04:00 O2 Delivery Device Nc 08/27/21 04:00 O2 Liters/Min 2.0 % 08/27/21 04:00 Technical Support Representative ID Hensa 08/27/21 04:00 Sodium 144 mmol/L (136-145) 08/31/21 03:53 Potassium 3.4 mmol/L (3.5-5.1) L 08/31/21 03:53 Chloride 111 mmol/L (98-107) H 08/31/21 03:53 Carbon Dioxide 23 mmol/L (22-29) 08/31/21 03:53 Anion Gap 13.4 (5-19) 08/31/21 03:53 BUN 50 mg/dL (8-23) H 08/31/21 03:53 Creatinine 1.5 mg/dL (0.7-1.2) H 08/31/21 03:53 GFR Calculation Not Reportable 08/31/21 03:53 Glucose 101 mg/dL (65-115) 08/31/21 03:53 Estimat Average Glucose 126 08/26/21 06:16 Hemoglobin A1c 6.0 % (4.0-6.0) 08/26/21 06:16 Calculated Osmolality 311 mOsm/kg (285-295) H 08/31/21 03:53 Lactic Acid 1.6 mmol/L (0.5-2.2) 08/25/21 19:19 Calcium 8.9 mg/dL (8.5-10.5) 08/31/21 03:53 Magnesium 2.2 mg/dL (1.7-2.3) 08/30/21 02:25 Iron 24 ug/dL (59-158) L 08/25/21 11:33 TIBC 132 mcg/dl 08/25/21 11:33 % Saturation 18.1 % (20-50) L 08/25/21 11:33 Unsat Iron Binding 108 ug/dL (112-347) L 08/25/21 11:33 Ferritin 992 ng/mL (30-400) H 08/25/21 11:33 Total Bilirubin 0.7 mg/dL (0.15-1.2) 08/31/21 03:53 AST 24 U/L (0-40) 08/31/21 03:53 ALT 29 U/L (0-41) 08/31/21 03:53 Alkaline Phosphatase 47 IU/L (40-130) 08/31/21 03:53 Lactate Dehydrogenase 318 U/L (135-225) H 08/25/21 11:33 Creatine Kinase 57 U/L (39-308) 08/25/21 11:33 Troponin T Baseline 18 ng/L (0-15) H 08/27/21 21:13 Troponin T 120 Minute 19.48 ng/L (0-15) H 08/27/21 23:18 Delta Troponin T 1.48 ABS# (0-10) 08/27/21 23:18 Troponin T Hi Sens 6Hr 16.31 ng/L (0-15) H 08/28/21 02:57 Troponin T Hi Sens 6Hr Delta -1.69 ng/L (0-12) L 08/28/21 02:57 C-Reactive Protein 22.7 mg/L (0.0-4.9) H 08/29/21 04:28 NT-Pro-B Natriuret Pep 3569 pg/mL (0-450) H 08/28/21 02:57 Total Protein 6.0 g/dL (6.6-8.7) L 08/31/21 03:53 Albumin 3.2 g/dL (3.5-5.2) L 08/31/21 03:53 Globulin 2.8 g/dL (1.3-4.6) 08/31/21 03:53 Triglycerides 66 mg/dL (0-150) 08/26/21 06:16 Cholesterol 98 mg/dL (0-200) 08/26/21 06:16 LDL Cholesterol, Calc 60 mg/dL (50-129) 08/26/21 06:16 Total VLDL Cholesterol 13 mg/dL (0-30) 08/26/21 06:16 HDL Cholesterol 25 mg/dL (60-100) L 08/26/21 06:16 Cholesterol/HDL Ratio 3.92 mg/dL (1.0-5.00) 08/26/21 06:16 Procalcitonin 0.12 ng/mL (0-0.5) 08/28/21 02:57 TSH 3.16 uIU/mL (0.27-4.20) 08/25/21 11:33 Urine Color Yellow (Yellow) 08/25/21 11:51 Urine Appearance Clear (CLEAR) 08/25/21 11:51 Urine pH 5 (5-7) 08/25/21 11:51 Ur Specific [place] 1.015 (1.005-1.030) 08/25/21 11:51 Urine Protein Trace (Negative) 08/25/21 11:51 Urine Glucose (UA) Norm (Normal) 08/25/21 11:51 Urine Ketones 1+ (Negative) H 08/25/21 11:51 Urine Blood 2+ (Negative) H 08/25/21 11:51 Urine Nitrate Negative (Negative) 08/25/21 11:51 Urine Bilirubin Neg (Negative) 08/25/21 11:51 Urine Urobilinogen Neg mg/dL (Negative) 08/25/21 11:51 Ur Leukocyte Esterase Negative (Negative) 08/25/21 11:51 Urine RBC Rare /hpf (0-2) 08/25/21 11:51 Urine WBC Rare /hpf (0-5) 08/25/21 11:51 Ur Squamous Epith Cells Rare /hpf (0-5) 08/25/21 11:51 Amorphous Sediment 1+ /hpf 08/25/21 11:51 Urine Bacteria Trace /hpf (NONE) 08/25/21 11:51 Vancomycin Trough 14.1 ug/mL (10-15) 08/28/21 14:52 Leuk/Lym Spec Type Cancelled 08/31/21 08:45 Leuk/Lym Clinical Info Cancelled 08/31/21 08:45 Leuk/Lymph Viability Cancelled 08/31/21 08:45 Leuk/Lym Sample Descrip Cancelled 08/31/21 08:45 Leuk/Lym # of Markers Cancelled 08/31/21 08:45 Leuk/Lym Markers Cancelled 08/31/21 08:45 Leuk/Lym Gating Strategy Cancelled 08/31/21 08:45 Leuk/Lym Interpretation Cancelled 08/31/21 08:45 Influenza Type A Ag Negative (Negative) 08/25/21 22:39 Influenza Type B Ag Negative (Negative) 08/25/21 22:39 SARS-CoV-2 Ag (Rapid) Positive (Negative) H 08/25/21 14:27 Vitals Last Vital Signs Temp 97.3 F L 08/31/21 08:00 Pulse 91 08/31/21 17:00 Resp 14 08/31/21 17:00 BP 137/75 08/31/21 17:00 Pulse Ox 95 08/31/21 17:00 Discharge Plan Discharge Patient Disposition: Home Condition: Stable Prescriptions: New benzonatate 100 mg Capsule 100 mg PO TID PRN (Reason: Cough) Qty: 60 0RF amiodarone [Pacerone] 200 mg Tablet 200 mg PO BID Qty: 180 0RF Rx Instructions: After 1 week decrease dose to 100mg twice a day. ferrous gluconate 324 mg (37.5 mg iron) Tablet 324 mg PO BIDWM Qty: 180 0RF citalopram 20 mg Tablet 20 mg PO DAILY Qty: 90 0RF metoprolol tartrate 50 mg Tablet 50 mg PO BID@0900,2100 Qty: 180 0RF olanzapine 10 mg Tablet,Disintegrating 10 mg PO BID Qty: 180 0RF levofloxacin 750 mg tablet 750 mg PO DAILY 5 Days Qty: 5 0RF Continued multivitamin Tablet 1 tab PO DAILY 0RF Calcium + D 600 mg(1,500mg) -200 unit Tablet 1 tab PO DAILY@12 0RF Vitamin C 500 mg Tablet 500 mg PO DAILY@12 0RF Vitamin D3 25 mcg (1,000 unit) Tablet 25 mcg PO DAILY@12 0RF magnesium oxide 400 mg magnesium Tablet 400 mg PO DAILY@12 0RF Fish Oil 1 cap PO DAILY@12 0RF garlic 1 tab PO DAILY@12 0RF lovastatin 40 mg tablet 40 mg PO BEDTIME 0RF levothyroxine 50 mcg tablet 50 mcg PO QAM 0RF memantine 28 mg capsule,sprinkle,ER 24hr 28 mg PO QAM 0RF Held losartan 100 mg tablet 100 mg PO BEDTIME 0RF Hold Instructions: Resume on 09/13/21. Discontinued hydrochlorothiazide 12.5 mg capsule 12.5 mg PO QAM 0RF metoprolol succinate 25 mg tablet extended release 24 hr 25 mg PO QAM 0RF Discharge Orders: Discharge Order (Routine); Ordered 08/31/21 Ordered By: Gómez Barraza Other Ambulatory Orders: DME: Oxygen (Order) Location: None Selected Ordered By: Gómez Barraza Referrals: CHARISSE Ribeiro FNP [Primary Care Provider] - 4-7 days (Call to make a follow up appointment with Dr. Ribeiro within 4-7 days. The phone # is [phone]) Kassidy Hernandez FNP [Referring] - (Call to make a follow up appointment with Kassidy COVARRUBIAS within 7-10 days. The phone # is [phone]. ) Discharge Diet: Cardiac Discharge Activity: Increase activity as tolerated, Limit activity as instructed and Oxygen as instructed Patient Instructions: A-fib (Atrial Fibrillation) (GEN), Acute Kidney Injury (GEN), Using Oxygen at Home (GEN), Hypoxia (GEN), Droplet Precautions (GEN), COVID-19 (Coronavirus Disease 2019) (GEN), How to Recover from COVID-19 at Home (GEN) Activity Restrictions/Additional Instructions: Continue oxygen at home, target oxygen saturation 90-92%. In case oxygen saturation is decreasing below 88%, increase oxygen flow. In case it is staying there despite resting and increasing oxygen, seek medical attention. Maintain droplet and contact precautions for additional 1 week to prevent spread of COVID-19 in the setting of severe illness Monitor heart rates at home, goal heart rate at rest is less than 110. In case your heart rate is more than 110 at rest, and blood pressure is more than 100 top number and more than 60 bottom number, take additional half tablet of metoprolol and contact your primary doctor's office for additional instructions. If the heart rate is persistently elevated, or blood pressure is low, seek medical attention. After 1 week decrease amiodarone dose to 100mg twice a day. Please discuss with your primary doctor regarding findings concerning for myelodysplastic process, possibly leukemia on peripheral smear. Discuss follow- up of the obtained flow cytometry study in the hospital which will take a while to complete. Discuss whether seeking additional assessment with referral to hematology, bone marrow study, consideration of treatment in case of confirmed bone marrow or blood cancer is something that you would want to pursue. Maintain fall precautions, avoid injury due to increased risk of bleeding. Hold losartan for now until your kidney function is found stabilized. Restart losartan in consultation with your primary doctor. Have your primary doctor recheck your kidney function at next appointment. Discharge Attestations Time Spent in Discharge Care*: greater than 30 min Quality Metrics Clinical Quality Measures [ No reported AMI, CVA or VTE this stay] Coding Level of Care Code Acute [facility] note Diagnoses NANCY (acute kidney injury) N17.9 Leukocytosis D72.829 Bradycardia R00.1 Hypotension I95.9 AMS (altered mental status) R41.82 Afib I48.91 Hypoxia R09.02 COVID-19 U07.1 Pneumonia J18.9 Essential hypertension I10 Hypothyroid E03.9 Alzheimer's dementia G30.9; F02.80 Thrombocytopenia D69.6
[2021-08-31] MEDS: memantine 5 mg tablet 20 MG PO (18:25)
--- NOTE | 2021-08-31 22:36 | PC.NURSE ---
08/31/2021 1900 Start of shift patient is awake and alert, sitting on side of bed. Metoprolol given and home O2 services notified upon patient discharge.
[2021-09-01 15:18] LABS: Miscellaneous Test See Scanned Lab Rpt
== END 2021-08-31 19:30 | disposition home or self-care (01) | DRG 177 ==
LOC: ER 18:52 → ER IP 20:02 → CSU 08-26 14:56
PROVIDERS: Family Medicine; Admitting Provider Student in an Organized Health Care Education/Training Program; Emergency Provider Family Medicine; PCP Nurse Practitioner Family; Visit Provider Internal Medicine
DX: U07.1 COVID-19 (principal); J12.82 Pneumonia due to coronavirus disease 2019; G93.41 Metabolic encephalopathy; J15.9 Unspecified bacterial pneumonia; N17.9 Acute kidney failure, unspecified; F05 Delirium due to known physiological condition; G30.9 Alzheimer's disease, unspecified; F02.80 Dementia in other diseases classified elsewhere, unspecified severity, without behavioral disturbance, psychotic disturbance, mood disturbance, and anxiety; I50.9 Heart failure, unspecified; I11.0 Hypertensive heart disease with heart failure; E03.9 Hypothyroidism, unspecified; E78.2 Mixed hyperlipidemia; E55.9 Vitamin D deficiency, unspecified; D69.6 Thrombocytopenia, unspecified; I27.20 Pulmonary hypertension, unspecified; Z85.828 Personal history of other malignant neoplasm of skin; E86.0 Dehydration; Z66 Do not resuscitate; I95.9 Hypotension, unspecified
CPT/HCPCS: 36415; 36591; 36600; 70450; 71045; 71275; 74177; 80051; 80053; 80061; 80202; 80500; 81001; 82330; 82550; 82728; 82805; 83036; 83540; 83550; 83605; 83615; 83735; 83880; 84145; 84443; 84484; 85007; 85025; 85378; 85384; 85651; 86140; 86403; 87040; 87070; 87205; 87426; 87449; 87641; 87804; 88184; 88185; 93005; 93306; 94640; 96365; 96366; 96367; 96372; 96375; 99285; J0282; J0456; J0696; J1100; J1630; J1940; J2060; J2543; J3370; J3490; J7030; J7050; J7060; J7614; J7626; J7644; P9041; Q0144; Q9967

== ENCOUNTER → 2021-09-05 13:22 | Outpatient (BNVA) | payer MEDICARE, SELFPAY | PROVIDERS: PCP Nurse Practitioner Family; Visit Provider Nurse Practitioner | DX: Z09 Encounter for follow-up examination after completed treatment for conditions other than malignant neoplasm (principal); Z79.899 Other long term (current) drug therapy | CPT/HCPCS: 36415; 80048; 85007; 85025 ==

== ENCOUNTER 2022-02-08 14:31 | Observation (INO) | payer MEDICARE, SELFPAY ==
--- NOTE | 2022-02-08 14:36 | ED_ITS ---
HPI - Seizure General: Chief Complaint: Seizure Stated Complaint: SEIZURES Time Seen by Provider: 02/08/22 14:33 Source: EMS Mode of arrival: ambulatory Limitations: no limitations History of Present Illness: HPI Narrative: 76-year-old male presents emergency room with chief complaint of seizures. Patient has a history of Alzheimer's dementia. Additionally has a history of a trial fibrillation [facility] ED PFSH: Medical History Afib Alzheimer's dementia Arthritis Colon cancer screening Essential hypertension Hypothyroid Influenza vaccine needed Medication management Mixed hyperlipidemia Prostate cancer screening Tinea corporis Vitamin D deficiency Surgical History H/O basal cell carcinoma excision Social History Smoking and tobacco status: former smoker Second hand smoke exposure: No Alcohol intake: never Desire information about alcohol rehabilitation?: No Counseling given: No Desire information about substance/drug rehabilitation?: No Counseling given: No Caregiver/support person: Yes Lives independently: Yes Household members: spouse Housing: House Marital status: Course Vital Signs: Vital signs: Vital Signs Pulse Rate 90 02/08/22 14:51 Respiratory Rate 15 02/08/22 14:51 Blood Pressure 96/48 02/08/22 14:51 Pulse Oximetry 100 02/08/22 14:51 Oxygen Delivery Me thod 02/08/22 14:51 MDM - Seizure MDM Narrative Medical decision making narrative: Patient is a white count of 300,000 looks like he is having a blastic crisis with lymphoma. Talk to the family they do not want to pursue any treatment he is got some Alzheimer's they have had discussed this previously that if he worsens I did not want to do anything. He has a history of chronic lymphocytic leukemia and is unknown issue. They would prefer to enroll him in hospice. There initial request was given admitted to the half-way but were unable to do that at this time. Discussed Dr. Mcleod will put him on observation c omfort care look to enroll in hospice. Lab Data Result diagrams: 02/08/22 15:15 02/08/22 15:15 Labs: Radiology Impressions Head CT 02/08/22 14:37 IMPRESSION: 1. No acute intracranial hemorrhage or edema. 2. Mild small vessel ischemic disease and atrophy. No acute interval change. Chest X-Ray 02/08/22 14:42 IMPRESSION: 1. Mild diffuse interstitial infiltrate in the right lung. This might represent chronic change however pneumonia could have this appearance. Laboratory Results WBC 305.7 10^3/uL (4.0-10.0) H* 02/08/22 15:15 RBC 2.05 10^6/uL (4.1-5.3) L 02/08/22 15:15 Hgb 5.9 g/dL (11.7-16.6) L* 02/08/22 15:15 Hct 18.3 % (42.0-52.0) L* 02/08/22 15:15 MCV 89.3 fl (80-94) 02/08/22 15:15 MCH 28.8 pg (28.0-34.0) 02/08/22 15:15 MCHC 32.2 g/dL (30.0-36.0) 02/08/22 15:15 RDW 27.0 % (12.1-15.1) H 02/08/22 15:15 Plt Count 157 10^3/cmm (130-400) 02/08/22 15:15 MPV 13.0 fL (7.4-10.4) H 02/08/22 15:15 Lymph % (Auto) Not Reportable 02/08/22 15:15 [place] % (Auto) Not Reportable 02/08/22 15:15 Lymph # (Auto) Not Reportable 02/08/22 15:15 [place] # (Auto) Not Reportable 02/08/22 15:15 Total Counted 100 (0-100) 02/08/22 15:15 Atypical Lymphs % 3.0 % (0-5) 02/08/22 15:15 Absolute Neutrophils 143.7 10^3/cmm (1.4-6.5) H 02/08/22 15:15 Segmented Neutrophils 26 % 02/08/22 15:15 Abs Segm Neuts (Man) 79.5 10/cmm (1.6-7.1) H 02/08/22 15:15 Band Neutrophils 21.0 % 02/08/22 15:15 Abs Band Neuts (Man) 64.2 10^3/cmm (0.0-1.2) H 02/08/22 15:15 Absolute Lymphocytes 45.9 10^3/cmm (1.2-3.4) H 02/08/22 15:15 Lymphocytes (Manual) 12 % 02/08/22 15:15 Monocytes (Manual) 6.0 % 02/08/22 15:15 Absolute Monocytes 18.3 10^3/cmm (0.1-0.6) H 02/08/22 15:15 Eosinophils (Manual) 0 % 02/08/22 15:15 Absolute Eosinophils 0.0 10^3/cmm (0.0-0.7) 02/08/22 15:15 Basophils (Manual) Not Reportable 02/08/22 15:15 Metamyelocytes 9.0 % 02/08/22 15:15 Myelocytes 15.0 % 02/08/22 15:15 Nucleated RBCs 3.0 /100WBC (0-1) H 02/08/22 15:15 Pathologist Review Yes 02/08/22 15:15 Blast Cells 8 % (0-0) H* 02/08/22 15:15 Smudge Cells Trace 02/08/22 15:15 Platelet Estimate Normal (Normal) 02/08/22 15:15 Giant Platelets Trace 02/08/22 15:15 Polychromasia Trace 02/08/22 15:15 Hypochromasia 2+ H 02/08/22 15:15 Anisocytosis 3+ H 02/08/22 15:15 Microcytosis Trace 02/08/22 15:15 Macrocytosis 2+ H 02/08/22 15:15 Ovalocytes Trace 02/08/22 15:15 Schistocytes Trace 02/08/22 15:15 Sodium 135 mmol/L (136-145) L 02/08/22 15:15 Potassium 4.5 mmol/L (3.5-5.1) 02/08/22 15:15 Chloride 99 mmol/L (98-107) 02/08/22 15:15 Carbon Dioxide 14 mmol/L (22-29) L 02/08/22 15:15 Anion Gap 26.5 (5-19) H 02/08/22 15:15 BUN 38 mg/dL (8-23) H 02/08/22 15:15 Creatinine 3.3 mg/dL (0.7-1.2) H 02/08/22 15:15 GFR Calculation Not Reportable 02/08/22 15:15 Glucose 229 mg/dL (65-115) H 02/08/22 15:15 Calculated Osmolality 296 mOsm/kg (285-295) H 02/08/22 15:15 Calcium 9.1 mg/dL (8.5-10.5) 02/08/22 15:15 Magnesium 2.7 mg/dL (1.7-2.3) H 02/08/22 15:15 Total Bilirubin 1.3 mg/dL (0.15-1.2) H 02/08/22 15:15 AST 102 U/L (0-40) H 02/08/22 15:15 ALT 93 U/L (0-41) H 02/08/22 15:15 Alkaline Phosphatase 98 IU/L (40-130) 02/08/22 15:15 Total Protein 6.3 g/dL (6.6-8.7) L 02/08/22 15:15 Albumin 3.0 g/dL (3.5-5.2) L 02/08/22 15:15 Globulin 3.3 g/dL (1.3-4.6) 02/08/22 15:15 Discharge Plan Discharge Patient Disposition: Placed in Observation Clinical Impression: CLL (chronic lymphocytic leukemia), Generalized seizure, Alzheimer's dementia Condition: Stable Prescriptions: No Action metoprolol tartrate 50 mg tablet 25 mg PO BID@0900,2100 Qty: 180 0RF lovastatin 40 mg tablet 40 mg PO BEDTIME 90 Days Qty: 90 1RF ferrous gluconate 324 mg (37.5 mg iron) tablet 324 mg PO BIDWM Qty: 180 1RF Pacerone 200 mg tablet 200 mg PO DAILY 90 Days Qty: 180 0RF levothyroxine 50 mcg tablet 50 mcg PO QAM 90 Days Qty: 90 1RF hydroxyzine HCl 25 mg tablet 25 mg PO DAILY PRN (Reason: anxiety) 30 Days Qty: 30 0RF mupirocin 2 % ointment 1 applic topical BID 7 Days Qty: 15 0RF citalopram 20 mg tablet 20 mg PO DAILY Qty: 90 1RF multivitamin Tablet 1 tab PO DAILY calcium carbonate-vitamin D3 600 mg(1,500mg) -200 unit Tablet 1 tab PO DAILY@12 Vitamin C 500 mg Tablet 500 mg PO DAILY@12 magnesium oxide 400 mg magnesium Tablet 400 mg PO DAILY@12 Fish Oil 1 cap PO DAILY@12 garlic 1 tab PO DAILY@12 Referrals: CHARISSE Ribeiro FNP [Primary Care Provider] - Coding Level of Care Code ED Shellacker for Kezia Rangel
--- NOTE | 2022-02-08 14:37 | ECG_ITS ---
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 Measurements Intervals [place] Rate: 82 P: 68 [place]: 201 QRS: 61 QRSD: 108 T: 64 QT: 322 QTc: 378 Interpretive Statements SINUS RHYTHM SEPTAL MYOCARDIAL INFARCTION , PROBABLY OLD [40+ ms Q WAVE IN V1/V2] Compared to ECG 08/28/2021 03:57:02 Myocardial infarct finding now present Atrial fibrillation no longer present Electronically Signed On 02-08-2022 16:30:55 CDT by Sean Blake M.D. [id number]
--- NOTE | 2022-02-08 14:37 | CT_ITS ---
WS: [id number] CT HEAD NONCONTRAST HISTORY: new onset seizures TECHNIQUE: Contiguous axial imaging performed through the brain in 2.5 mm imaging. Bone and soft tiss ue windows. Sagittal and coronal reformats reviewed. All CT scans at [facility] use at least one of these dose optimization techniques: automated exposure control; mA and/or kV adjustment per pa tient size (includes targeted exams where dose is matched to clinical indication); or iterative recon struction. DLP: 1045.38 mGy.cm COMPARISON: 08/26/2021 No acute intracranial hemorrhage, midline shift or mass effect. Mild symmetric atrophy involving the cerebellum and cerebrum. Mild small vessel ischemic disease. Ventricles: Normal size with no hydrocephalus. No inferior displacement of the cerebellar tonsils. Paranasal sinuses: As visualized are clear. Mastoid air cells: Well pneumatized. Calvarium and scalp: Skull is intact with no soft tissue edema or swelling. Moderate calcified plaque in the distal vertebral arteries and within the intracranial carotid arteri es. CT/CT head wo con* [id number] IMPRESSION: 1. No acute intracranial hemorrhage or edema. 2. Mild small vessel ischemic disease and atrophy. No acute interval change.
--- NOTE | 2022-02-08 14:42 | XR_ITS ---
WS: [id number] Exam: XR chest 1V portable [id number] Date/Time of Exam: 02/08/2022 3:06 PM Reason For Exam: dyspnea/cough Comparison 08/28/2021. Mild diffuse interstitial infiltrate in the right lung. Left lung is clear. Normal cardiomediastinal silhouette and regional bony elements. XR/XR chest 1V portable [id number] IMPRESSION: 1. Mild diffuse interstitial infiltrate in the right lung. This might represent chronic change however pneumonia could have this appearance.
[2022-02-08 14:51] VITALS: BP 96/48; PULSE 90; RESP 15; O2SAT 100
[2022-02-08 15:24] LABS: Mean Corpuscular HGB Conc 32.2 g/dL (30.0-36.0); Mean Corpuscular Hemoglobin 28.8 pg (28.0-34.0); Mean Corpuscular Volume 89.3 fl (80-94); Platelet Count 157 10^3/cmm (130-400); Red Blood Count 2.05 10^6/uL (4.1-5.3)
[2022-02-08 15:29] LABS: Slide Review Slide Review Perform
[2022-02-08] MEDS: sodium chloride 0.9% 500 ML 999 ML IV (15:30)
[2022-02-08 15:31] LABS: Hematocrit 18.3 % (42.0-52.0); Hemoglobin 5.9 g/dL (11.7-16.6); White Blood Count 305.7 10^3/uL (4.0-10.0)
[2022-02-08 15:47] LABS: Alanine Aminotransferase 93 U/L (0-41); Alkaline Phosphatase 98 IU/L (40-130); Anion Gap 26.5 (5-19); Aspartate Amino Transferase 102 U/L (0-40); Blood Urea Nitrogen 38 mg/dL (8-23); Calcium 9.1 mg/dL (8.5-10.5); Carbon Dioxide 14 mmol/L (22-29); Chloride 99 mmol/L (98-107); Globulin 3.3 g/dL (1.3-4.6); Glucose 229 mg/dL (65-115); Magnesium 2.7 mg/dL (1.7-2.3); Osmolality Calculated 296 mOsm/kg (285-295); Potassium 4.5 mmol/L (3.5-5.1); Sodium 135 mmol/L (136-145); Total Bilirubin 1.3 mg/dL (0.15-1.2); Total Protein 6.3 g/dL (6.6-8.7)
[2022-02-08 16:17] LABS: Absolute Segmented Neutrophil 79.5 10/cmm (1.6-7.1); Band Neutrophils Absolute 64.2 10^3/cmm (0.0-1.2); Eosinophils 0 %; Lymphocytes 12 %; Lymphocytes Absolute 45.9 10^3/cmm (1.2-3.4); Monocytes Absolute 18.3 10^3/cmm (0.1-0.6); Segmented Neutrophils 26 %; Total Cells Counted 100 (0-100)
[2022-02-08 16:20] LABS: Absolute Neutrophil 143.7 10^3/cmm (1.4-6.5); Blastocytes 8 % (0-0); Giant Platelets Trace; Platelet Estimate Normal (Normal); Polychromasia Trace
[2022-02-08 16:21] LABS: Anisocytosis 3+; Hypochromasia 2+; Macrocytosis 2+; Microcytosis Trace; Ovalocytes Trace; Pathology Refferal Yes; Schistocytes Trace; Smudge Cells Trace
[2022-02-08 17:06] VITALS: BP 110/48; PULSE 76; RESP 14; O2SAT 93
--- NOTE | 2022-02-08 17:19 | P.HP_ITS ---
Providers/Chief Complaint Primary Care Provider: MARCI Frias Chief Complaint: SEIZURES History of Present Illness Jalen Cannon is a 76 year old male with past medical history of hypothyroidism, hypertension, Alzheimer's dementia, CLL not on any treatment other than end-of-life care at home was brought into the ER by his today because patient had a seizure at home. As per patient has a seizure whenever he tries to stand up for last couple of months and she currently is not able to take care of him any further as she and the patient lives by themselves and she herself is elderly as well. states they have been considering hospice for quite some time and would want to pursue the care going forward. Review of Systems General: Reports: ROS unobtainable due to medical condition Medications/Allergies Home Medications Medication Instructions Recorded Confirmed Last Taken Type ascorbic acid (vitamin C) 500 mg 500 mg PO DAILY@12 08/25/21 02/08/22 02/05/22 History tablet (Vitamin C) calcium carbonate 600 mg-vitamin 1 tab PO DAILY@12 08/25/21 02/08/22 02/05/22 History D3 5 mcg (200 unit) tablet garlic 100 mg tablet 100 mg PO DAILY ##0 08/25/21 02/08/22 02/05/22 History magnesium oxide 400 mg PO DAILY@12 08/25/21 02/08/22 02/05/22 History multivitamin 1 tab PO DAILY 08/25/21 02/08/22 02/05/22 History omega 9-sni-lph-fish oil 1,000 mg 1 cap PO DAILY ##0 08/25/21 02/08/22 02/05/22 History (120 mg-180 mg) capsule (Fish Oil) mupirocin 2 % topical ointment 1 applic topical BID 7 days #15 09/05/21 02/08/22 Unknown Rx grams amiodarone 200 mg tablet (Pacerone) 200 mg PO DAILY 90 days #180 tabs 10/25/21 02/08/22 02/05/22 Rx ferrous gluconate 324 mg (37.5 mg 324 mg PO BIDWM #180 tabs 10/25/21 02/08/22 02/05/22 Rx iron) tablet hydroxyzine HCl 25 mg tablet 25 mg PO DAILY PRN anxiety 30 days 10/25/21 02/08/22 Unknown Rx #30 tabs levothyroxine 50 mcg tablet 50 mcg PO QAM 90 days #90 tabs 10/25/21 02/08/22 0 02/05/22 Rx lovastatin 40 mg tablet 40 mg PO BEDTIME 90 days #90 tabs 10/25/21 02/08/22 02/05/22 Rx metoprolol tartrate 50 mg tablet 25 mg PO BID@0900,2100 #180 tabs 10/25/21 02/08/22 02/05/22 Rx citalopram 20 mg tablet 20 mg PO DAILY #90 tabs 11/21/21 02/08/22 02/05/22 Rx Allergies Allergy/AdvReac Type Severity Reaction Status Date / Time donepezil [From Aricept] Allergy weight loss Verified 11/21/21 15:28 lorazepam [From Ativan] Allergy ADR-Agitate Verified 11/21/21 15:28 d PFSH Acute PFSH: Medical History Afib Alzheimer's dementia Arthritis Colon cancer screening Essential hypertension Hypothyroid Influenza vaccine needed Medication management Mixed hyperlipidemia Prostate cancer screening Tinea corporis Vitamin D deficiency Surgical History H/O basal cell carcinoma excision Social History Smoking and tobacco status: former smoker Second hand smoke exposure: No Alcohol intake: never Desire information about alcohol rehabilitation?: No Counseling given: No Desire information about substance/drug rehabilitation?: No Counseling given: No Caregiver/support person: Yes Lives independently: Yes Household members: spouse Housing: House Marital status: Vitals/I&O/Wt Last Vital Signs Pulse 76 02/08/22 17:06 Resp 14 02/08/22 17:06 BP 110/48 02/08/22 17:06 Pulse Ox 93 02/08/22 17:06 O2 Del Method 02/08/22 17:06 Physical Exam Narrative: Patient awake, alert to self lying comfortably in bed with seizure and fall precautions. Further examination deferred because of hospice care. Data : 02/08/22 15:15 02/08/22 15:15 Other Labs: Radiology Impressions Head CT 02/08/22 14:37 IMPRESSION: 1. No acute intracranial hemorrhage or edema. 2. Mild small vessel ischemic disease and atrophy. No acute interval change. Chest X-Ray 02/08/22 14:42 IMPRESSION: 1. Mild diffuse interstitial infiltrate in the right lung. This might represent chronic change however pneumonia could have this appearance. Laboratory Results WBC 305.7 10^3/uL (4.0-10.0) H* 02/08/22 15:15 RBC 2.05 10^6/uL (4.1-5.3) L 02/08/22 15:15 Hgb 5.9 g/dL (11.7-16.6) L* 02/08/22 15:15 Hct 18.3 % (42.0-52.0) L* 02/08/22 15:15 MCV 89.3 fl (80-94) 02/08/22 15:15 MCH 28.8 pg (28.0-34.0) 02/08/22 15:15 MCHC 32.2 g/dL (30.0-36.0) 02/08/22 15:15 RDW 27.0 % (12.1-15.1) H 02/08/22 15:15 Plt Count 157 10^3/cmm (130-400) 02/08/22 15:15 MPV 13.0 fL (7.4-10.4) H 02/08/22 15:15 Lymph % (Auto) Not Reportable 02/08/22 15:15 [place] % (Auto) Not Reportable 02/08/22 15:15 Lymph # (Auto) Not Reportable 02/08/22 15:15 [place] # (Auto) Not Reportable 02/08/22 15:15 Total Counted 100 (0-100) 02/08/22 15:15 Atypical Lymphs % 3.0 % (0-5) 02/08/22 15:15 Absolute Neutrophils 143.7 10^3/cmm (1.4-6.5) H 02/08/22 15:15 Segmented Neutrophils 26 % 02/08/22 15:15 Abs Segm Neuts (Man) 79.5 10/cmm (1.6-7.1) H 02/08/22 15:15 Band Neutrophils 21.0 % 02/08/22 15:15 Abs Band Neuts (Man) 64.2 10^3/cmm (0.0-1.2) H 02/08/22 15:15 Absolute Lymphocytes 45.9 10^3/cmm (1.2-3.4) H 02/08/22 15:15 Lymphocytes (Manual) 12 % 02/08/22 15:15 Monocytes (Manual) 6.0 % 02/08/22 15:15 Absolute Monocytes 18.3 10^3/cmm (0.1-0.6) H 02/08/22 15:15 Eosinophils (Manual) 0 % 02/08/22 15:15 Absolute Eosinophils 0.0 10^3/cmm (0.0-0.7) 02/08/22 15:15 Basophils (Manual) Not Reportable 02/08/22 15:15 Metamyelocytes 9.0 % 02/08/22 15:15 Myelocytes 15.0 % 02/08/22 15:15 Nucleated RBCs 3.0 /100WBC (0-1) H 02/08/22 15:15 Pathologist Review Yes 02/08/22 15:15 Blast Cells 8 % (0-0) H* 02/08/22 15:15 Smudge Cells Trace 02/08/22 15:15 Platelet Estimate Normal (Normal) 02/08/22 15:15 Giant Platelets Trace 02/08/22 15:15 Polychromasia Trace 02/08/22 15:15 Hypochromasia 2+ H 02/08/22 15:15 Anisocytosis 3+ H 02/08/22 15:15 Microcytosis Trace 02/08/22 15:15 Macrocytosis 2+ H 02/08/22 15:15 Ovalocytes Trace 02/08/22 15:15 Schistocytes Trace 02/08/22 15:15 Sodium 135 mmol/L (136-145) L 02/08/22 15:15 Potassium 4.5 mmol/L (3.5-5.1) 02/08/22 15:15 Chloride 99 mmol/L (98-107) 02/08/22 15:15 Carbon Dioxide 14 mmol/L (22-29) L 02/08/22 15:15 Anion Gap 26.5 (5-19) H 02/08/22 15:15 BUN 38 mg/dL (8-23) H 02/08/22 15:15 Creatinine 3.3 mg/dL (0.7-1.2) H 02/08/22 15:15 GFR Calculation Not Reportable 02/08/22 15:15 Glucose 229 mg/dL (65-115) H 02/08/22 15:15 Calculated Osmolality 296 mOsm/kg (285-295) H 02/08/22 15:15 Calcium 9.1 mg/dL (8.5-10.5) 02/08/22 15:15 Magnesium 2.7 mg/dL (1.7-2.3) H 02/08/22 15:15 Total Bilirubin 1.3 mg/dL (0.15-1.2) H 02/08/22 15:15 AST 102 U/L (0-40) H 02/08/22 15:15 ALT 93 U/L (0-41) H 02/08/22 15:15 Alkaline Phosphatase 98 IU/L (40-130) 02/08/22 15:15 Total Protein 6.3 g/dL (6.6-8.7) L 02/08/22 15:15 Albumin 3.0 g/dL (3.5-5.2) L 02/08/22 15:15 Globulin 3.3 g/dL (1.3-4.6) 02/08/22 15:15 A&P Assessment and plan (1) Hospice care: Status: Acute (2) Generalized seizure: Status: Acute (3) Afib: Status: Acute (4) Alzheimer's dementia: Status: Acute (5) Anemia: Status: Acute (6) CLL (chronic lymphocytic leukemia): Status: Acute (7) Leukocytosis: Status: Acute Plan Hospice care. Continue chronic home medications if and when patient is able to take including levothyroxine, lovastatin, metoprolol, amiodarone. No blood work. Limited vital check. Regular diet with boost with each meal. Case management consult. Hospice referral. would want to see if patient can be placed to a senior living with hospice care as she is not able to take care of the patient by herself any further as she and the patient described himself and patient has had multiple falls at home. CODE STATUS: Discussed in detail with . DNR/DNI. Attestations Medical Necessity Statement*: Under observation for initiation of hospice care as patient and patient's live by themselves and is unable to take care of the patient going forward. Time Spent in Patient Care: 16 - 35 minutes Coding Level of Care Code Acute Special Procedures Technologist for Jesseg Fwd Diagnoses Hospice care Z51.5 Generalized seizure R56.9 Afib I48.91 Alzheimer's dementia G30.9; F02.80 Anemia D64.9 CLL (chronic lymphocytic leukemia) C91.10 Leukocytosis D72.829
[2022-02-08] MEDS: ferrous gluconate 324 mg Tablet PO (19:44)
[2022-02-08] MEDS: sennosides-docusate Tablet 1 TAB PO (19:44)
[2022-02-08 20:14] VITALS: BP 111/59; PULSE 82; RESP 18; TEMP 36.5; O2SAT 99
[2022-02-08] MEDS: atorvastatin 40 mg Tablet 20 MG PO (21:03)
[2022-02-08 21:12] VITALS: PULSE 82; RESP 16; O2SAT 91
[2022-02-08 22:42] VITALS: BMI 22.8
[2022-02-09 00:11] VITALS: BP 109/53; PULSE 88; RESP 15; TEMP 36.6; O2SAT 93
[2022-02-09] MEDS: acetaminophen 325 mg Tablet 650 MG PO (02:16)
[2022-02-09] MEDS: ALPRAZolam 0.5 mg Tablet PO (02:16)
[2022-02-09 05:11] VITALS: BP 106/63; PULSE 87; RESP 16; TEMP 36.4; O2SAT 90
[2022-02-09] MEDS: levothyroxine 50 mcg Tablet PO (05:43)
[2022-02-09 07:41] VITALS: BP 106/55; PULSE 84; RESP 19; TEMP 36.4; O2SAT 89
[2022-02-09 08:20] VITALS: PULSE 81; RESP 17; O2SAT 86
[2022-02-09] MEDS: sennosides-docusate Tablet 1 TAB PO ×2 (09:19→17:45)
[2022-02-09] MEDS: ferrous gluconate 324 mg Tablet PO ×2 (09:19→17:45)
[2022-02-09] MEDS: amiodarone 200 mg Tablet PO (09:19)
[2022-02-09] MEDS: multivitamin therapeutic Tablet 1 TAB PO (09:19)
[2022-02-09] MEDS: citalopram 20 mg Tablet PO (09:19)
[2022-02-09] MEDS: metoprolol tartrate 50 mg Tablet 25 MG PO (09:20)
[2022-02-09] MEDS: magnesium oxide 400 mg tablet PO (12:05)
[2022-02-09] MEDS: ascorbic acid 500 mg Tablet PO (12:05)
[2022-02-09 12:12] VITALS: BP 120/57; PULSE 74; RESP 20; TEMP 36.3; O2SAT 92
--- NOTE | 2022-02-09 15:11 | PM.PN ---
Subjective Subjective: Patient has remained hemodynamically stable, afebrile and comfortable. Patient is currently on hospice. Awaiting placement. Vitals/I&O/Wt Last Vital Signs Temp 97.4 F L 02/09/22 12:12 Pulse 74 02/09/22 12:12 Resp 20 H 02/09/22 12:12 BP 120/57 02/09/22 12:12 Pulse Ox 92 02/09/22 12:12 O2 Del Method 02/09/22 12:12 02/09/22 02/09/22 02/09/22 06:59 14:59 22:59 Intake Total 120 / 620 240 / 240 Output Total 120 / 120 Balance 0 / 500 240 / 240 Weight last 48 hrs Weight 78.335 kg Physical Exam Narrative: Patient awake, alert to self lying comfortably in bed with seizure and fall precautions. Further examination deferred because of hospice care. Urinary Catheter Management: Elizondo: Cath Placed During This Visit: yes Reason for Continuing Indwelling Catheter: Acute Urinary Retention or Obstruction Urinary Catheter Date of Insertion: 02/08/22 Urinary Catheter Time of Insertion: 21:18 Data : 02/08/22 15:15 02/08/22 15:15 A&P Assessment and plan (1) Hospice care: Status: Acute (2) Generalized seizure: Status: Acute (3) Afib: Status: Acute (4) Alzheimer's dementia: Status: Acute (5) Anemia: Status: Acute (6) CLL (chronic lymphocytic leukemia): Status: Acute (7) Leukocytosis: Status: Acute Plan Hospice care. Continue chronic home medications if and when patient is able to take including levothyroxine, lovastatin, metoprolol, amiodarone. No blood work. Limited vital check. Regular diet with boost with each meal. Case management consult. Hospice referral. would want to see if patient can be placed to a long-term with hospice care as she is not able to take care of the patient by herself any further as she and the patient described himself and patient has had multiple falls at home. CODE STATUS: Discussed in detail with . DNR/DNI. Attestations Medical Necessity Statement*: Hospice awaiting placement in comfortable and safe discharge planning Time Spent in Patient Care: less than 15 minutes Coding Level of Care Code Acute Starch Dumper for Chg Fwd Diagnoses Hospice care Z51.5 Generalized seizure R56.9 Afib I48.91 Alzheimer's dementia G30.9; F02.80 Anemia D64.9 CLL (chronic lymphocytic leukemia) C91.10 Leukocytosis D72.829
[2022-02-09 15:35] VITALS: BP 111/58; PULSE 75; RESP 22; TEMP 36.4; O2SAT 96
--- NOTE | 2022-02-09 19:37 | PC.NURSE ---
patient's family notified of patient time of . time of 1928. Soraya mccullough and Stephanie rn at bedside. [facility] famililies preferance. physician notified.
--- NOTE | 2022-02-10 12:55 | P.DES_ITS ---
Discharge Providers DDS Date of Admission: 02/08/22 17:08 Date Summary Completed: 02/10/22 Attending Provider at Admission: Jhon Mcleod MD Time of : 19:28 Attending Provider at Discharge: Jhon Mcleod MD Primary Care Provider: MARCI Frias DS Diagnoses Hospital Diagnoses (1) Hospice care: (2) Generalized seizure: (3) Afib: (4) Alzheimer's dementia: (5) Anemia: (6) CLL (chronic lymphocytic leukemia): (7) Leukocytosis: Reason for Visit Reason for Visit SEIZURES Summary Date and Time of Date of : 02/09/22 Time of : 19:28 Summary Summary: Jalen Cannon is a 76 year old male with past medical history of hypothyroidism, hypertension, Alzheimer's dementia, CLL not on any treatment other than end-of-life care at home was brought into the ER by his today because patient had a seizure at home.? As per patient has a seizure whenever he tries to stand up for last couple of months and she currently is not able to take care of him any further as she and the patient lives by themselves and she herself is elderly as well.? states they have been considering hospice for quite some time and would want to pursue the care going forward. [facility] patient had cardiac arrest and eventually in a comfortable date on 02/09 at 7:29 PM Additional Data Confirmation of as documented by pronouncing clinician: no pulse and no respirations Family: contacted Additional persons at bedside: nursing staff Attending/PCP notified?: I am attending Was code activated?: No Autopsy requested?: No Advance directives?: Yes Hospice patient?: Yes Discharge Plan Discharge Patient Disposition: Condition: Stable Prescriptions: No Action metoprolol tartrate 50 mg tablet 25 mg PO BID@0900,2100 Qty: 180 0RF lovastatin 40 mg tablet 40 mg PO BEDTIME 90 Days Qty: 90 1RF ferrous gluconate 324 mg (37.5 mg iron) tablet 324 mg PO BIDWM Qty: 180 1RF Pacerone 200 mg tablet 200 mg PO DAILY 90 Days Qty: 180 0RF levothyroxine 50 mcg tablet 50 mcg PO QAM 90 Days Qty: 90 1RF hydroxyzine HCl 25 mg tablet 25 mg PO DAILY PRN (Reason: anxiety) 30 Days Qty: 30 0RF mupirocin 2 % ointment 1 applic topical BID 7 Days Qty: 15 0RF citalopram 20 mg tablet 20 mg PO DAILY Qty: 90 1RF multivitamin Tablet 1 tab PO DAILY garlic 100 mg Tablet 100 mg PO DAILY Qty: 0 calcium carbonate-vitamin D3 600 mg(1,500mg) -200 unit Tablet 1 tab PO DAILY@12 ascorbic acid (vitamin C) [Vitamin C] 500 mg Tablet 500 mg PO DAILY@12 omega 6-qoe-lum-fish oil [Fish Oil] 1,000 mg (120 mg-180 mg) Capsule 1 cap PO DAILY Qty: 0 magnesium oxide 400 mg magnesium Tablet 400 mg PO DAILY@12 Referrals: CHARISSE Ribeiro, [employer] [Primary Care Provider] - Probable Cause of Probable cause of : Chronic lymphocytic leukemia DS Attestations Time Spent in /Discharge Care*: less than 30 min Quality - AMI: AMI present?: No Quality - Stroke: CVA present?: No Quality - VTE: VTE present?: No Deep Vein Thrombosis/Pulmonary Embolism Present on Admission: No Coding Level of Care Code Acute Rubber Grinder for Chg Fwd Diagnoses Hospice care Z51.5 Generalized seizure R56.9 Afib I48.91 Alzheimer's dementia G30.9; F02.80 Anemia D64.9 CLL (chronic lymphocytic leukemia) C91.10 Leukocytosis D72.829
== END 2022-02-09 20:00 | disposition expired ==
LOC: ER 17:54 → MEDSURG 20:17
PROVIDERS: Admitting Provider Student in an Organized Health Care Education/Training Program; Emergency Provider Family Medicine; PCP Nurse Practitioner Family; Visit Provider Student in an Organized Health Care Education/Training Program
DX: C91.10 Chronic lymphocytic leukemia of B-cell type not having achieved remission (principal); I46.9 Cardiac arrest, cause unspecified; Z51.5 Encounter for palliative care; R56.9 Unspecified convulsions; I48.91 Unspecified atrial fibrillation; G30.9 Alzheimer's disease, unspecified; F02.80 Dementia in other diseases classified elsewhere, unspecified severity, without behavioral disturbance, psychotic disturbance, mood disturbance, and anxiety; E03.9 Hypothyroidism, unspecified; I10 Essential (primary) hypertension; Z87.891 Personal history of nicotine dependence
CPT/HCPCS: 51702; 70450; 71045; 80053; 80503; 83735; 85007; 85025; 93005; 99285; G0378; J7040